=== PATIENT | female | born 1955 | race Caucasian/White ===

== ENCOUNTER → 2017-01-13 | Outpatient (CLI) | payer MEDICARE ==
[2016-10-21 16:28] VITALS: BP 137/72
[~2017-01-13] MED LIST: ASPI500T10 PO; CARI350T PO; DULO60CA6 PO; ESOM20CA PO; GABA-586 PO; HYDR-2672 PO; HYDR-2762 PO; HYDR25TA9 PO; IBUP-1007 PO; Iron PO; LEVO125T5 PO; LOSA1TAB16 PO; LOSA1TAB17 PO; MELO15TA6 PO; PROAIR HFA8.5 GM IH; RANI75TA95 PO; WARF1TAB PO; WARF5TAB PO; ZOLP10TA PO; [UNRECOGNIZED DRUG - CODE] PO
--- NOTE | 2017-01-14 05:28 | PAIN ---
DATE OF SERVICE: 01/13/2017 INITIAL CONSULTATION CHIEF COMPLAINT: Low back and right lower extremity pain, secondary complaint of neck and bilateral upper extremity and shoulder pain, right hip pain. HISTORY OF PRESENT ILLNESS: This is a 61-year-old female who presents with history of pain in the base of the neck, bilateral shoulder and upper extremities, more on the left than the right, and in the low back, right more than the left, and in the right posterior hip with pain radiating into the groin as well as into the posterior thigh, posterior knee and calf on the right side and on the left side in the upper back, neck and shoulder as well as some pain radiating to left arm greater than the right with some tingling and numbness in the left forearm and hand as well. The patient reports this has been going on for 20 plus years, gradually increasing. The patient reports it is not a result of any specific injury or accident that she is aware of. She has had multiple accidents over the years and falls. She had bilateral hip replacements, first of the left hip in 04/2016 and the right hip then in 09/2016. The patient reports her left hip did very well, right hip still has some residual pain remaining and also some low back pain. The patient reports that she had MRI scans performed at [facility]; however, when we contacted them, the only records they had on her were about 2 years old and they were unable to forward those at the time of this dictation. The patient reports the pain in the base of the neck as well as the low back and right leg and right hip as constant, sharp, stabbing, throbbing with numbness and tingling, radiating pain into the left upper extremity and right lower extremity. The patient reports it wakes her from sleep at least several times a night. It does not affect her bowel or bladder control, but does affect her ability to walk. She is using a cane as she does have one with her today, she is using with her right hand. Disability rating from 0 to 10, 10 being the worst, the patient rates it as a 6 with family and home responsibilities, 8 with self-care and life support activities. She reports that she is on disability currently secondary to health reasons. The patient has had physical therapy in the past as well as trigger point injections and epidural injections, she reports all of these have helped her in the past. Also, what helped her most is oxycodone and Soma, she is taking Soma currently. She does have a history of abuse of oxycodone recently and her primary physician requests recommendation of nonopioid options. PAST MEDICAL HISTORY: Significant for hearing loss, eyeglasses, hypothyroidism, cigarette smoking 1 pack a day for about 40 years, hypertension, arthritis. PAST SURGICAL HISTORY: Previous surgeries include left hip replacement in 04/2016, right hip replacement in 09/2016, breast lumpectomy in , hysterectomy in 1992. CURRENT MEDICATIONS: Include losartan, Soma, oxycodone, Nexium, Ambien, Cymbalta, gabapentin, and levothyroxine. ALLERGIES: THE PATIENT IS ALLERGIC TO SULFA DRUGS. FAMILY HISTORY: Significant for osteoarthritis and atrial fibrillation. SOCIAL HISTORY: The patient does not drink, but does smoke one pack a day on average cigarettes about 40 years. Does not use any illegal or illicit drugs by her report. She is single, lives locally in [place], [place]. REVIEW OF SYSTEMS: The patient's review of systems is positive for those items mentioned in the history of present illness. All systems reviewed and otherwise negative. It is complete, full and well documented on the patient's chart. PHYSICAL EXAMINATION: GENERAL: Blood pressure 146/78, pulse 79, respirations 18, temperature 98.0 degrees Fahrenheit, height is 5 feet, weight is 153 pounds. GENERAL: The patient is awake, alert, oriented, appropriate, very pleasant demeanor. HEENT: Shows normocephalic and atraumatic. Extraocular movements are intact and symmetrical. Oral cavity shows mucous membranes are moist and pink. Dentition is intact. NECK: Shows anterior throat supple without palpable lymphadenopathy noted. Swallow reflex is symmetrical. CHEST: Shows normal with inspection. Breath sounds are clear to auscultation bilaterally. HEART: Shows S1 and S2 clear. No murmurs are auscultated. ABDOMEN: Obese, soft, nontender, nondistended. No palpable organomegaly. No new rebound or guarding demonstrated. BACK: Shows spine grossly in the midline. No previous bruises, lesions, rashes, or surgical scars are noted. Normal-appearing cervical lordotic curvature, slight increase in thoracic kyphotic curvature and normal lumbar lordotic curvature. With palpation, the cervical paraspinous muscle shows some kpjb-qc-xgiccufd tenderness in the inferior aspect of the cervical paraspinous muscles as well as superior medial and lateral trapezius bilaterally, but is without trigger points, radiation, pain or asymmetry. The patient shows full rotational motion of the cervical spine with laterally greater than 45 degrees, close to 90 degrees right and left lateral with full extension, full forward flexion, chin to chest without pain reported. Low back shows normal on inspection with symmetrical paraspinous musculature. With palpation, paraspinous muscles are moderately firm and tender, but with normal muscle girth, and to a moderate extent, tender in the middle and lower distribution of the paraspinous muscles, slightly more on the right than the left, but present bilaterally with tenderness. No tenderness over the sacrum or sacroiliac regions. The patient has full rotational motion of the lumbar spine, both laterally as well as extension and flexion without significant difficulty or pain reported. EXTREMITIES: Show upper extremity deep tendon reflexes 2+ in the biceps and triceps tendons. Lower extremities showed 1+ in the patellar and tendo calcaneus tendons, are equal. Motor exam shows clinical product specialist strength at 5/5 at his biceps and triceps flexion. Lower extremities show approximately 4 on a scale of 5 but symmetrical with dorsiflexion, extension, quadriceps and hamstring flexion. The patient does have well-healed surgical scarring over the hips noted with peripheral pulses that are 2+ radial distribution, 1+ posterior tibial and dorsalis pedis pulses. No peripheral edema is noted. No clubbing or cyanosis of any of the extremities. The patient's straight leg raise noted to be negative for reproduction of radicular symptoms bilaterally. Gaenslen's maneuvers are negative bilaterally. Jules's maneuver is mildly positive on the right with external rotation of the right hip, but negative on the left. The patient is able to stand, stand on her toes, but loses balance quickly putting all of her weight on her right leg and is using a cane to ambulate, has a shuffling gait favoring the right lower extremity with ambulation. IMPRESSION: 1. This is a 61-year-old female with long history of multiple pain complaints, now with pain in the base of the neck, bilateral upper extremities with some radicular qualities also, low back and right lower extremity with some radicular qualities as well. 2. Status post bilateral hip replacement in 04/2016 and 09/2016 with left and right hips respectively. 3. History of arthritis. 4. Hypertension. 5. History of opioid abuse. PLAN AND RECOMMENDATIONS: Recommended increasing the patient's gabapentin to 400 mg 3 times daily with eventual goal of 600 mg 3 times daily if still obtaining some good analgesic and therapeutics from this. Also, we will recommend reevaluating the patient's cervical spine as well as lumbar spine with MRI, as she does have radicular symptoms in both of the upper extremities, left greater than right, and the right lower extremity, which may be attributing to some of the pain and it may all be from post-surgical consideration from her hip surgery. The patient did ask if she could have hydrocodone. I discussed this with her and we will not prescribe this for her as she has had some abuse history and we discussed more pertinent treatment of actually solving the pain issue instead of just covering up with narcotics. The patient was somewhat disappointed in this, then asked for Soma refill, again denied this as this can be combined with hydrocodone in an abuse situation as well. I discussed this with the patient and she assured me this was not the case, and nonetheless, we will not prescribe this for her either. The patient will follow up once the MRI scans are obtained of the cervical spine and lumbar spine. SENA CULVER MD DR: DONNA/renetta JOB#: [id number] / [id number] NATALIE Singleton MD
== END | disposition home or self-care (01) ==
LOC: PNCL 09:21
PROVIDERS: ATTEND Anesthesiology
DX: M79.604 Pain in right leg (principal); M54.2 Cervicalgia; M25.512 Pain in left shoulder; M25.511 Pain in right shoulder; M25.551 Pain in right hip
CPT/HCPCS: G0463

== ENCOUNTER → 2017-04-03 | Outpatient (CLI) | payer BC ==
[2016-10-21 16:28] VITALS: BP 137/72
[~2017-04-03] MED LIST changes: +WARF-78 PO; -WARF1TAB PO; +WARF1TAB74 PO; -WARF5TAB PO
--- NOTE | 2017-04-03 13:05 | RAD ---
PROCEDURE MR of the left shoulder HISTORY Left shoulder pain for 2 or 3 weeks. TECHNIQUE Routine multiplanar sequences are obtained. COMPARISON None FINDINGS Acromioclavicular joint is mildly degenerative. There is no significant undersurface osteophytes or mass-effect. Thickening of the supraspinatus and infra spinatus tendons with heterogeneous signal compatible with tendinosis. Diffuse partial tearing the undersurface, fairly deep at supraspinatus tendon, about 80 percent. There is also diffuse bursal surface irregularity. Partial tearing of the subscapularis tendon. Mild muscle atrophy. Trace fluid in the subdeltoid bursa. Small glenohumeral joint effusion with synovitis. Severe primary osteoarthritis and chondromalacia at the glenohumeral joint. Degenerative tear of the superior labrum. There also appears to be an inferior labral tear. Partial tearing of the biceps tendon with slight medial subluxation, perched over the lesser tuberosity. Subchondral bone irregularity and flattening at the posteromedial humeral head, most likely a impaction fracture, with subjacent marrow contusion. Mild marrow edema at the glenoid is likely degenerative. IMPRESSION 1. Moderate to severe rotator cuff tendinosis with diffuse partial tearing. 2. Superior labral tear. Likely inferior labral tear. 3. Primary osteoarthritis. 4. Partial biceps tendon tear with medial subluxation. 5. Subchondral irregularity at the posteromedial humeral head presumably due to impaction fracture. Electronically signed by: Amari Arnold MD (April 03, 2017 13:03:38)
== END | disposition home or self-care (01) ==
LOC: MRI 11:30
PROVIDERS: ATTEND Orthopaedic Surgery
DX: M19.012 Primary osteoarthritis, left shoulder (principal)
CPT/HCPCS: 73221

== ENCOUNTER → 2017-11-28 | Outpatient (CLI) | payer BC ==
[2017-11-28 14:48] LABS: ADD MAN DIFF? NO
[2017-11-28 14:51] LABS: BASO # 0.1 x10^3/uL (0.0-0.2); BASO % 1 % (0-3); EOS # 0.2 x10^3/uL (0.0-0.7); EOS % 3 % (0-3); HEMATOCRIT 41.5 % (36.0-47.0); HEMOGLOBIN 13.8 g/dL (12.0-15.5); LYMPH # 2.4 x10^3/uL (1.0-4.8); LYMPH % 30 % (24-48); MEAN CORPUSCULAR HEMOGLOBIN 31 pg (25-35); MEAN CORPUSCULAR HGB CONC 33 g/dL (31-37); MEAN CORPUSCULAR VOLUME 93 fL (79-100); MONO # 0.7 x10^3/uL (0.0-1.1); MONO % 9 % (0-9); NEUT # 4.4 x10^3uL (1.8-7.7); NEUT % 56 % (31-73); PLATELET COUNT 517 x10^3/uL (140-400); RED BLOOD COUNT 4.45 x10^6/uL (3.50-5.40); RED CELL DISTRIBUTION WIDTH 14.3 % (11.5-14.5); WHITE BLOOD COUNT 7.8 x10^3/uL (4.0-11.0)
[2017-11-28 15:01] LABS: BILIRUBIN,URINE NEGATIVE (NEG); CLARITY,URINE CLEAR; COLOR,URINE YELLOW; GLUCOSE,URINE NEGATIVE (NEG); NITRITE,URINE NEGATIVE (NEG); PROTEIN,URINE NEGATIVE (NEG-TRACE); UROBILINOGEN,URINE 0.2 mg/dL (0.2 mg/dL)
[2017-11-28 15:08] LABS: PARTIAL THROMBOPLASTIN TIME 30 SEC (24-38); PROTHROMBIN TIME PATIENT 12.5 SEC (11.7-14.0)
[2017-11-28 15:09] LABS: ALBUMIN 4.3 g/dL (3.4-5.0); ANION GAP 10 (6-14); BLOOD UREA NITROGEN 10 mg/dL (7-20); CALCIUM 9.7 mg/dL (8.5-10.1); CARBON DIOXIDE 28 mmol/L (21-32); CHLORIDE 97 mmol/L (98-107); CREATININE 0.6 mg/dL (0.6-1.0); GFR 101.6; GLUCOSE 94 mg/dL (70-99); POTASSIUM 3.5 mmol/L (3.5-5.1); SODIUM 135 mmol/L (136-145)
[2017-11-28 15:25] LABS: BACTERIA,URINE MODERATE /HPF (0-FEW); RBC,URINE OCC /HPF (0-2); SQUAMOUS EPITHELIAL CELL,UR MANY /LPF; WBC,URINE OCC /HPF (0-4)
[2017-11-28 15:56] LABS: SEDIMENTATION RATE 30 (0-25)
[2017-11-29 04:19] LABS: MRSA BY PCR Negative (Negative)
== END | disposition home or self-care (01) ==
LOC: SURGPAT 13:55
DX: M19.012 Primary osteoarthritis, left shoulder (principal); S43.432D Superior glenoid labrum lesion of left shoulder, subsequent encounter
CPT/HCPCS: 36415; 71046; 80048; 81001; 82040; 85025; 85610; 85651; 85730; 87086; 87641; 93005

== ENCOUNTER 2018-03-01 15:35 | Inpatient (IN) | payer BC ==
[2018-03-01] MEDS: IPRATRPIUM/ALBUTEROL 0.5/2.5MG 3 ML NEBU. NEB ×2 (15:57→19:51)
[2018-03-01 16:12] LABS: ADD MAN DIFF? NO
[2018-03-01 16:13] LABS: BASO # 0.1 x10^3/uL (0.0-0.2); BASO % 1 % (0-3); EOS # 0.1 x10^3/uL (0.0-0.7); EOS % 1 % (0-3); HEMOGLOBIN 14.9 g/dL (12.0-15.5); LYMPH # 2.1 x10^3/uL (1.0-4.8); LYMPH % 21 % (24-48); MEAN CORPUSCULAR HEMOGLOBIN 32 pg (25-35); MEAN CORPUSCULAR HGB CONC 34 g/dL (31-37); MEAN CORPUSCULAR VOLUME 94 fL (79-100); MONO # 0.6 x10^3/uL (0.0-1.1); MONO % 6 % (0-9); NEUT % 71 % (31-73); PLATELET COUNT 626 x10^3/uL (140-400); RED BLOOD COUNT 4.71 x10^6/uL (3.50-5.40); RED CELL DISTRIBUTION WIDTH 14.6 % (11.5-14.5); WHITE BLOOD COUNT 9.9 x10^3/uL (4.0-11.0)
[2018-03-01 16:53] LABS: ANION GAP 11 (6-14); BLOOD UREA NITROGEN 9 mg/dL (7-20); BUN/CREATININE RATIO 11 (6-20); CALCIUM 10.6 mg/dL (8.5-10.1); CARBON DIOXIDE 25 mmol/L (21-32); CHLORIDE 99 mmol/L (98-107); CREATININE 0.8 mg/dL (0.6-1.0); GFR 72.9; GLUCOSE 133 mg/dL (70-99); POTASSIUM 4.2 mmol/L (3.5-5.1); SODIUM 135 mmol/L (136-145)
[2018-03-01 16:58] LABS: ALBUMIN 4.4 g/dL (3.4-5.0); ALBUMIN/GLOBULIN RATIO 1.3 (1.0-1.7); ALK PHOS 114 U/L (46-116); ALT (SGPT) 18 U/L (14-59); AST (SGOT) 12 U/L (15-37); TOTAL BILIRUBIN 0.4 mg/dL (0.2-1.0); TOTAL PROTEIN 7.9 g/dL (6.4-8.2)
[2018-03-01] MEDS ORDERED: CONTRAST GIVEN MC (17:00)
[2018-03-01 17:04] LABS: NT-PRO BNP 20 pg/mL (0-124)
[2018-03-01 17:07] LABS: TROPONINI < 0.017 ng/mL (0.000-0.055)
[2018-03-01] MEDS: IOHEXOL 300 MG/ML 100ML VIAL. IV (17:15)
[2018-03-01] MEDS ORDERED: NITROGLYCERIN SUBLINGUAL 0.4 MG BOTTLE OF 25. SL (18:00)
[2018-03-01] MEDS ORDERED: ONDANSETRON PF 4 MG/2 ML VIAL. IV (18:00)
[2018-03-01] MEDS: predniSONE 10 MG TABLET PO (18:19)
[2018-03-01] MEDS: methylPREDNISolone SOD SUCC PF 40 MG/ML VIAL. IV (21:34)
[2018-03-01] MEDS: guaiFENesin/CODEINE 100mg/10mg 5 ML LIQUID PO (21:34)
[2018-03-01] MEDS: ZOLPIDEM 5 MG TABLET. PO (21:34)
[2018-03-01] MEDS: ATORVASTATIN CALCIUM 10 MG TABLET. PO (21:35)
[2018-03-01] MEDS: DULoxetine HCL 30 MG CAPSULE.DR PO (21:35)
[2018-03-01] MEDS: GABAPENTIN 300 MG CAPSULE. PO (21:37)
[2018-03-01 22:22] LABS: TROPONINI < 0.017 ng/mL (0.000-0.055)
[2018-03-01] MEDS: ALBUTEROL SULFATE 2.5 MG/3 ML NEBU. NEB (23:05)
[2018-03-02] MEDS: guaiFENesin DM 600/30MG 1 TAB TAB.ER.12H PO ×3 (01:52→09:14)
[2018-03-02 05:11] LABS: BASO % 0 % (0-3); EOS % 0 % (0-3); HEMATOCRIT 38.7 % (36.0-47.0); HEMOGLOBIN 13.2 g/dL (12.0-15.5); LYMPH # 0.6 x10^3/uL (1.0-4.8); LYMPH % 6 % (24-48); MEAN CORPUSCULAR HEMOGLOBIN 32 pg (25-35); MEAN CORPUSCULAR HGB CONC 34 g/dL (31-37); MEAN CORPUSCULAR VOLUME 94 fL (79-100); MONO # 0.1 x10^3/uL (0.0-1.1); MONO % 1 % (0-9); NEUT # 9.3 x10^3uL (1.8-7.7); NEUT % 93 % (31-73); PLATELET COUNT 537 x10^3/uL (140-400); RED BLOOD COUNT 4.14 x10^6/uL (3.50-5.40); RED CELL DISTRIBUTION WIDTH 13.9 % (11.5-14.5)
[2018-03-02 05:22] LABS: ADD MAN DIFF? YES
[2018-03-02 05:24] LABS: ANION GAP 14 (6-14); BLOOD UREA NITROGEN 18 mg/dL (7-20); CARBON DIOXIDE 21 mmol/L (21-32); CHLORIDE 97 mmol/L (98-107); GFR 56.4; GLUCOSE 255 mg/dL (70-99); POTASSIUM 3.4 mmol/L (3.5-5.1); SODIUM 132 mmol/L (136-145)
[2018-03-02] MEDS: LEVOTHYROXINE 100 MCG TABLET PO (06:05)
[2018-03-02] MEDS: PANTOPRAZOLE 40 MG TABLET.DR. PO (06:05)
[2018-03-02] MEDS: methylPREDNISolone SOD SUCC PF 40 MG/ML VIAL. IV (06:06)
[2018-03-02 06:48] LABS: TROPONINI < 0.017 ng/mL (0.000-0.055)
[2018-03-02] MEDS: IPRATRPIUM/ALBUTEROL 0.5/2.5MG 3 ML NEBU. NEB ×3 (07:03→10:52)
[2018-03-02] MEDS: ALBUTEROL SULFATE 2.5 MG/3 ML NEBU. NEB (07:04)
[2018-03-02] MEDS: BUDESONIDE 0.5 MG/2 ML NEBU. NEB (07:05)
[2018-03-02] MEDS ORDERED: NICOTINE 21MG PATCH. TD (07:45)
[2018-03-02 07:53] LABS: % LYMPHS 1 % (24-48); % MONOS 1 % (0-10); % SEGS 98 % (35-66)
[2018-03-02 07:54] LABS: PLT ESTIMATE INCREASED (ADEQUATE)
[2018-03-02] MEDS: GABAPENTIN 300 MG CAPSULE. PO (09:03)
[2018-03-02] MEDS: hydroCHLOROthiazide 25 MG TABLET PO (09:04)
[2018-03-02] MEDS: MELOXICAM 7.5 MG TABLET PO ×2 (09:05→09:14)
[2018-03-02] MEDS: ACETAMINOPHEN 325 MG TABLET. PO (09:05)
[2018-03-02] MEDS: LOSARTAN POTASSIUM 50 MG TABLET. PO (09:05)
[2018-03-02] MEDS: CYANOCOBALAMIN (VITAMIN B-12) 1,000 MCG TABLET. PO (09:06)
[2018-03-02] MEDS: DULoxetine HCL 30 MG CAPSULE.DR PO (09:06)
[2018-03-02] MEDS: POTASSIUM CHLORIDE 20 MEQ TABLET.ER. PO (09:06)
== END 2018-03-02 11:45 | disposition home health service (06) | DRG 189 ==
LOC: ER 15:35 → 5 SOUTH 17:56
DX: J96.00 Acute respiratory failure, unspecified whether with hypoxia or hypercapnia (principal); J44.1 Chronic obstructive pulmonary disease with (acute) exacerbation; J98.11 Atelectasis; E87.6 Hypokalemia; I10 Essential (primary) hypertension; E03.9 Hypothyroidism, unspecified; E78.5 Hyperlipidemia, unspecified; Z79.899 Other long term (current) drug therapy; Z91.14 Patient's other noncompliance with medication regimen; F17.210 Nicotine dependence, cigarettes, uncomplicated; Z86.718 Personal history of other venous thrombosis and embolism; Z88.1 Allergy status to other antibiotic agents
CPT/HCPCS: 36415; 71045; 71275; 80048; 80053; 83880; 84484; 85007; 85025; 93005; 94640; 94760; 97161-GP; J1956; J2920; J7512; J7613; J7620; J7626; Q9967

== ENCOUNTER 2018-06-07 19:36 | Emergency (ER) | payer BC, OTHER ==
[2018-06-07] MEDS: MORPHINE SULFATE 10 MG/ML VIAL. IV (21:03)
[2018-06-07 21:05] LABS: ADD MAN DIFF? NO
[2018-06-07 21:07] LABS: BASO # 0.1 x10^3/uL (0.0-0.2); BASO % 1 % (0-3); EOS # 0.2 x10^3/uL (0.0-0.7); EOS % 3 % (0-3); HEMATOCRIT 37.2 % (36.0-47.0); HEMOGLOBIN 12.8 g/dL (12.0-15.5); LYMPH # 2.7 x10^3/uL (1.0-4.8); LYMPH % 34 % (24-48); MEAN CORPUSCULAR HEMOGLOBIN 32 pg (25-35); MEAN CORPUSCULAR HGB CONC 35 g/dL (31-37); MEAN CORPUSCULAR VOLUME 93 fL (79-100); MONO # 0.8 x10^3/uL (0.0-1.1); MONO % 10 % (0-9); NEUT # 4.2 x10^3uL (1.8-7.7); NEUT % 52 % (31-73); PLATELET COUNT 502 x10^3/uL (140-400); RED BLOOD COUNT 3.99 x10^6/uL (3.50-5.40); RED CELL DISTRIBUTION WIDTH 14.3 % (11.5-14.5); WHITE BLOOD COUNT 8.1 x10^3/uL (4.0-11.0)
[2018-06-07 21:21] LABS: ANION GAP 7 (6-14); BLOOD UREA NITROGEN 10 mg/dL (7-20); CALCIUM 9.1 mg/dL (8.5-10.1); CARBON DIOXIDE 30 mmol/L (21-32); CHLORIDE 97 mmol/L (98-107); CREATININE 0.7 mg/dL (0.6-1.0); GFR 85.1; GLUCOSE 98 mg/dL (70-99); POTASSIUM 3.5 mmol/L (3.5-5.1); SODIUM 134 mmol/L (136-145)
[2018-06-07 21:23] LABS: ALBUMIN 3.7 g/dL (3.4-5.0); ALK PHOS 83 U/L (46-116); ALT (SGPT) 17 U/L (14-59); AST (SGOT) 14 U/L (15-37); DIRECT BILIRUBIN 0.1 mg/dL (0.0-0.2); LIPASE 217 U/L (73-393); TOTAL BILIRUBIN 0.3 mg/dL (0.2-1.0); TOTAL PROTEIN 6.8 g/dL (6.4-8.2)
[2018-06-07] MEDS: IOHEXOL 300 MG/ML 100ML VIAL. IV (21:41)
[2018-06-07 22:25] LABS: BILIRUBIN,URINE NEGATIVE (NEG); CLARITY,URINE CLEAR; COLOR,URINE YELLOW; GLUCOSE,URINE NEGATIVE (NEG); NITRITE,URINE NEGATIVE (NEG); PROTEIN,URINE NEGATIVE (NEG-TRACE); UROBILINOGEN,URINE 0.2 mg/dL (0.2 mg/dL)
[2018-06-07 22:29] LABS: BACTERIA,URINE 0 /HPF (0-FEW); RBC,URINE 0 /HPF (0-2); SQUAMOUS EPITHELIAL CELL,UR OCC /LPF; WBC,URINE 0 /HPF (0-4)
[2018-06-07] MEDS: CIPROFLOXACIN HCL 250 MG TABLET. PO (23:00)
[2018-06-07] MEDS: MORPHINE SULFATE 4 MG/ML DISP.SYRIN. IV (23:00)
[2018-06-07] MEDS: metroNIDAZOLE 500 MG TABLET PO (23:00)
== END 2018-06-07 23:27 | disposition home or self-care (01) ==
LOC: ER 23:27
DX: R10.32 Left lower quadrant pain (principal); K21.9 Gastro-esophageal reflux disease without esophagitis; E78.00 Pure hypercholesterolemia, unspecified; I10 Essential (primary) hypertension; J44.9 Chronic obstructive pulmonary disease, unspecified; Z88.0 Allergy status to penicillin; Z88.2 Allergy status to sulfonamides; Z88.8 Allergy status to other drugs, medicaments and biological substances
CPT/HCPCS: 36415; 74177; 80048; 80076; 81001; 83690; 85025; 96374; 96376; 99285-25; J2270; Q9967

== ENCOUNTER → 2018-09-13 | Outpatient (CLI) | payer BC, OTHER ==
[2018-06-07 22:45] VITALS: BP 151/69
[~2018-09-13] MED LIST changes: +ALBU0.63 NEB; +ALBU2.5V5 NEB; +CIPR500T PO; +CYAN10005 PO; +GLYC10.7 IH; +GUAI120L35 PO; -HYDR-2672 PO; +HYDR-2766 PO; +HYDR-971 PO; -LOSA1TAB16 PO; -LOSA1TAB17 PO; +LOSA1TAB19 PO; +LOSA1TAB22 PO; +LOVA20TA2 PO; +MELO15TA23 PO; +METR500T PO; +OXYC-317 PO; +TIOT4MIS3 IH; -[UNRECOGNIZED DRUG - CODE] PO
--- NOTE | 2018-09-13 17:18 | KCIC ---
MR of the right knee Indication: Right knee pain for 6 months. Instability. Technique: The standard multiplanar sequences are obtained. FINDINGS: Artifact: No significant image degradation. Medial meniscus: Small and blunted. Compatible with a tear. Lateral meniscus: Intact. Anterior cruciate ligament: Intact Posterior cruciate ligament: Intact Medial collateral ligament: Intact. Lateral structures: * Iliotibial band: Intact. * Lateral collateral ligament: Intact. * Biceps femoris tendon: Intact * Popliteus tendon attachment: Intact Extensive mechanism: * Patellar tendon: Intact * Quadriceps tendon: Intact * Retinacular structures: Intact Fluid: Trace joint effusion. Trace García's cyst. Intra-articular bodies: None visualized Joint compartments * patellofemoral joint: Mild chondromalacia. * medial compartment: Moderate chondromalacia at the medial femoral condyle. * lateral compartment:Intact Bones: Mild cystic change within the proximal tibia. Mild degenerative changes at the tibiofibular joint. Soft tissue: Unremarkable Impression: 1. Medial meniscal tear. 2. Primary osteoarthritis. Electronically signed by: Amari Arnold MD (09/13/2018 5:16 PM) [facility]
== END | disposition home or self-care (01) ==
LOC: KCIC MRI 15:50
PROVIDERS: ATTEND Orthopaedic Surgery
DX: S83.241A Other tear of medial meniscus, current injury, right knee, initial encounter (principal); M17.11 Unilateral primary osteoarthritis, right knee; M94.261 Chondromalacia, right knee; X58.XXXA Exposure to other specified factors, initial encounter; Y93.89 Activity, other specified; Y92.89 Other specified places as the place of occurrence of the external cause; Y99.8 Other external cause status
CPT/HCPCS: 73721

== ENCOUNTER → 2019-01-24 | Outpatient (CLI) | payer OTHER ==
[2018-06-07 22:45] VITALS: BP 151/69
[~2019-01-24] MED LIST changes: +ALBU2.5V8 IH; -GABA-586 PO; +GABA300C18 PO; +HYDR-2145 PO; -HYDR-2762 PO; +HYDR-2765 PO; -HYDR-2766 PO; +HYDR-2769 PO; +HYDR-3164 PO; -HYDR-971 PO; -HYDR25TA9 PO; -PROAIR HFA8.5 GM IH; +RANI-348 PO; -RANI75TA95 PO
--- NOTE | 2019-01-24 16:38 | KCIC ---
MR of the right shoulder HISTORY: Right shoulder pain. Chronic and getting worse. TECHNIQUE: Routine multiplanar sequences are obtained. FINDINGS: Mild motion degradation. Acromioclavicular joint is intact. Full-thickness rotator cuff tear of the supraspinatus and infraspinatus tendon with 3 cm retraction. Severe fatty infiltration of the infraspinatus, mild at the supraspinatus, with volume loss. Subscapularis partial tear. Small subdeltoid bursal effusion. Small glenohumeral joint effusion. Severe cartilage loss at the inferior glenoid. Degenerative tear of the posterosuperior labrum. Milder degeneration of the inferior labrum. No aggressive bone destruction or acute fracture. IMPRESSION: 1. Large retracted rotator cuff tear with atrophy. 2. Primary osteoarthritis. 3. Posterosuperior labral tear. 4. Small effusion. Electronically signed by: Amari Arnold MD (01/24/2019 4:35 PM) [facility]
== END | disposition home or self-care (01) ==
LOC: KCIC MRI 14:54
PROVIDERS: ATTEND Orthopaedic Surgery
DX: S43.491A Other sprain of right shoulder joint, initial encounter (principal); S46.011A Strain of muscle(s) and tendon(s) of the rotator cuff of right shoulder, initial encounter; M62.511 Muscle wasting and atrophy, not elsewhere classified, right shoulder; M19.011 Primary osteoarthritis, right shoulder; M25.411 Effusion, right shoulder; X58.XXXA Exposure to other specified factors, initial encounter; Y93.89 Activity, other specified; Y92.89 Other specified places as the place of occurrence of the external cause; Y99.8 Other external cause status
CPT/HCPCS: 73221

== ENCOUNTER → 2019-02-22 | Outpatient (CLI) | payer OTHER ==
[2018-06-07 22:45] VITALS: BP 151/69
--- NOTE | 2019-02-22 14:26 | EKG ---
[facility] [address] [place] [address] Test Date: 2019-02-22 Test Time: 14:11:55 Pat Name: GIOVANNA GARCIA Department: Room: Gender: F [employer] Manager: SHIV : 1955 Requested By: CONSUELO MORRISON Order Number: [id number] Reading MD: Armando Frausto MD Measurements Intervals [place] Rate: 83 P: 53 SD: 122 QRS: -12 QRSD: 132 T: 138 QT: 394 QTc: 469 Interpretive Statements SINUS RHYTHM VENTRICULAR PREMATURE COMPLEX(ES) LBBB Electronically Signed On 02-26-2019 14:59:23 CDT by Armando Frausto MD
--- NOTE | 2019-02-22 15:10 | RAD ---
AP and Lateral Views of the Chest 02/22/2019 2:27 PM Indication: PRE OP. HX OF COPD Comparison: CT of the chest March 01, 2018 Findings: Elevation of left hemidiaphragm with left middle lobe atelectasis is similar to prior CT scan. No pneumothorax or pleural effusion is identified. Small nodular opacities can be seen in the right lung. These may relate to the nodule seen on prior CT scan. Recommend a follow-up CT chest for evaluation. Heart size is normal. No new focal consolidative infiltrate is seen. Left shoulder arthroplasty noted. No acute osseous changes are seen. IMPRESSION: 1. Persistent elevation of left hemidiaphragm with middle lobe atelectasis. 2. Small right-sided nodules, possibly relating to the previously seen nodules. Follow-up CT recommended given possible increase in prominence. Electronically signed by: Kip Calix MD (02/22/2019 3:08 PM) [facility]
--- NOTE | 2019-02-28 12:22 | NUR ---
FAXED MRSA,CXR,EKG'S PRELIMINARY REPORTS TO ,PCP OFFICE FOR REVIEW 02/25/2019 AT 1304 AND RECEIVED TRANSMITTAL CONFIRMATION. PATIENT'S LABS,UA WAS TO BE DONE AT PCP'S OFFICE AT HER VISIT WHICH WAS 02/26/19 AND CALLED OFFICE 02/28/2019 AT 0925 AND TALKED TO DANDRE NOVOA AND REQUESTED TEST REPORTS AND F/U MEDICAL CLEARANCE NOTES AND SHE SAID PCP IS OFF TODAY BUT WILL BE IN THE OFFICE TOMORROW AND SHE WILL FAX TEST REPORTS WHEN AVAILABLE.
--- NOTE | 2019-04-23 19:10 | NUR ---
PATIENT'S 03/05/2019 SURGERY CANCELLED BY D/T ABNORMAL EKG AND NEEDS ECHOCARDIOGRAM PER PCP.
== END | disposition home or self-care (01) ==
LOC: SURGPAT 13:35
PROVIDERS: ATTEND Orthopaedic Surgery
DX: Z01.818 Encounter for other preprocedural examination (principal); I44.7 Left bundle-branch block, unspecified; I49.3 Ventricular premature depolarization; J98.11 Atelectasis; R91.8 Other nonspecific abnormal finding of lung field; J44.9 Chronic obstructive pulmonary disease, unspecified; Z88.8 Allergy status to other drugs, medicaments and biological substances
CPT/HCPCS: 36415; 71046; 87641; 93005

== ENCOUNTER → 2019-03-13 | Outpatient (CLI) | payer OTHER ==
[2018-06-07 22:45] VITALS: BP 151/69
--- NOTE | 2019-03-13 18:16 | RAD ---
Examination: CT CHEST WO CONTRAST History: F/U lung NODULE PREV SENT Comparison/Correlation: 03/01/2018 CT of the chest Findings: Axial images of chest were obtained without contrast. Sagittal and coronal reformatted images were provided. Total left shoulder joint arthroplasty noted. Tracheobronchial tree is unremarkable. Right middle lobe pulmonary nodule which measures 0.4 cm diameter is present and noncalcified. It is seen on axial image 36 of series 2. Lingular atelectasis at the medial basilar aspect anteriorly noted and similar upon correlation with previous exam. Left lateral basilar noncalcified nodule measuring 0.3 cm diameter is present on axial image 34 of series 2. Few punctate right anterior apical pulmonary nodules. Elevation of the left hemidiaphragm is noted. No acute bony process. Severe degenerative disc space narrowing at T12-L1 noted. Partially visualized upper abdomen is unremarkable. Impression: Multiple small pulmonary nodules are present but are stable measuring less than 0.5 cm diameter. No suspicious pulmonary nodule or suspicious infiltrate. No further follow-up required. PQRS Compliance Statement: One or more of the following individualized dose reduction techniques were utilized for this examination: 1. Automated exposure control 2. Adjustment of the mA and/or kV according to patient size 3. Use of iterative reconstruction technique Electronically signed by: Wilfrido Henderson MD (03/13/2019 6:13 PM) [facility]
== END | disposition home or self-care (01) ==
LOC: CT 14:23
PROVIDERS: ATTEND Family Medicine
DX: J98.11 Atelectasis (principal); R91.8 Other nonspecific abnormal finding of lung field; M48.05 Spinal stenosis, thoracolumbar region; Z96.612 Presence of left artificial shoulder joint; Z87.891 Personal history of nicotine dependence
CPT/HCPCS: 71250

== ENCOUNTER → 2019-06-04 | Outpatient (CLI) | payer MEDICAID, OTHER ==
[2018-06-07 22:45] VITALS: BP 151/69
--- NOTE | 2019-06-04 13:43 | CARD ---
MR#: [id number] Date of Study: 06/04/2019 Ordering Physician: NATALIE BOTELLO, Referring Physician: NATALIE BOTELLO Tech: Ivone Luna RDCS APPROVED REPORT EXAM: Two-dimensional and M-mode echocardiogram with Doppler and color Doppler. Other Information Quality : Good INDICATION Left Ventricular Hypertrophy 2D DIMENSIONS RVDd2.3 (2.9-3.5cm)Left Atrium(2D)3.6 (1.6-4.0cm) IVSd0.9 (0.7-1.1cm)Aortic Root(2D)2.8 (2.0-3.7cm) LVDd4.9 (3.9-5.9cm)LVOT Diameter1.9 (1.8-2.4cm) PWd0.9 (0.7-1.1cm)LVDs3.8 (2.5-4.0cm) FS (%) 23.2 %SV52.4 ml LVEF(%)56.4 (>50%) Aortic Valve AoV Peak Bogdan.133.2cm/sAoV VTI26.0cm AO Peak GR.7.1mmHgLVOT Peak Bogdan.116.1cm/s LVOT VTI 19.29cmAO Mean GR.4mmHg DAJUAN (VMAX)2.16gi7AMY (VTI)2.13cm2 Mitral Valve MV E Ikjkbpab39.6cm/sMV DECEL NLJF439wl MV A Lbnqkaqx26.7cm/sMV QKU34qa E/A Ratio0.9MVA (PHT)3.52cm2 TDI E/Lateral E'11.6E/Medial E'13.7 Tricuspid Valve TR P. Lewnmova705ph/sRAP NNAUOXVL1gsRw TR Peak Gr.90sdKyNMED31xfXu Pulmonary Vein S1 Avebvpgf77.3cm/sD2 Spprgexw29.7cm/s LEFT VENTRICLE The left ventricle is normal size. There is normal left ventricular wall thickness. The left ventricu lar systolic function is normal. The Ejection Fraction is 60%. Septal motion consistent with conducti on abnormality. Transmitral Doppler flow pattern is Grade I-abnormal relaxation pattern. RIGHT VENTRICLE The right ventricle is normal size. The right ventricular systolic function is normal. ATRIA The left atrium size is normal. The right atrium size is normal. The interatrial septum is intact wit h no evidence for an atrial septal defect or patent foramen ovale as noted on 2-D or Doppler imaging. AORTIC VALVE The aortic valve is calcified but opens well. Doppler and Color Flow revealed no significant aortic r egurgitation. There is no significant aortic valvular stenosis. MITRAL VALVE The mitral valve is normal in structure and function. There is no evidence of mitral valve prolapse. There is no mitral valve stenosis. Doppler and Color Flow revealed no mitral valve regurgitation note d. TRICUSPID VALVE The tricuspid valve is normal in structure and function. Doppler and Color Flow revealed trace tricus pid regurgitation. The PA pressure was estimated at 24 mmHg. There is no tricuspid valve stenosis. PULMONIC VALVE The pulmonic valve is not well visualized. Doppler and Color Flow revealed no pulmonic valvular regur gitation. There is no pulmonic valvular stenosis. GREAT VESSELS The aortic root is normal in size. The ascending aorta is normal in size. The IVC is normal in size a nd collapses >50% with inspiration. PERICARDIAL EFFUSION There is no evidence of significant pericardial effusion. Critical Notification Critical Value: No <Conclusion> The left ventricular systolic function is normal. The Ejection Fraction is 60%. Transmitral Doppler flow pattern is Grade I-abnormal relaxation pattern. Trace tricuspid regurgitation. The PA pressure was estimated at 24 mmHg. There is no evidence of significant pericardial effusion. Signed by : Gregory Guillaume, Electronically Approved : 06/04/2019 13:43:25
== END | disposition home or self-care (01) ==
LOC: ECHO 12:45
PROVIDERS: ATTEND Family Medicine
DX: I35.8 Other nonrheumatic aortic valve disorders (principal)
CPT/HCPCS: 93306

== ENCOUNTER → 2019-08-06 | Outpatient (CLI) | payer OTHER ==
[2018-06-07 22:45] VITALS: BP 151/69
[~2019-08-06] MED LIST changes: +AMLO5TAB10 PO; +CYAN-25 PO; -CYAN10005 PO; +LEVO50TA5 PO
--- NOTE | 2019-08-08 15:17 | NUR ---
Pretesting results from 08/06/[address] Geller and Dr. Ann Camejo. Patient notified her Vitamin D level is low-9, she said her PCP Dr. Camejo has resigned and she is in transition to a new PCP but has not set up an appointment. Recommended she start an over the counter Vitamin D in the interim. I notified Dr. Yimi Gutierrez's MA that patient has no PCP at this time to address the low Vitamin D.
--- NOTE | 2019-08-12 10:26 | NUR ---
CALLED DANDRE SANDERSON OF 08/12/19 AT 1000 AND LEFT A MESSAGE F/U ON VIT.D BEING LOW. MARIA E CALLED BACK AT 1020 08/12/19 AND PATIENT OKAY TO GO AHEAD WITH SURGERY PER WITH LOW VIT.D.
--- NOTE | 2019-08-12 19:19 | NUR ---
CALLED PATIENT AT 0915 08/12/2019 FOR SURGERY TIME CHANGED AND LEFT A MESSAGE FOR OR AT 1300 AND TO BE HERE AT [facility] AT 1100 AND MAY HAVE WATER TILL 0900 ONLY.
== END | disposition home or self-care (01) ==
LOC: SURGPAT 12:36
PROVIDERS: ATTEND Orthopaedic Surgery
DX: Z01.818 Encounter for other preprocedural examination (principal); S83.241A Other tear of medial meniscus, current injury, right knee, initial encounter; Z88.2 Allergy status to sulfonamides; Z88.8 Allergy status to other drugs, medicaments and biological substances
CPT/HCPCS: 36415; 87641

== ENCOUNTER 2019-08-13 07:28 | Inpatient (IN) | payer MEDICAID, OTHER ==
[~2019-08-13] VITALS: Ht 149.9 cm; Wt 61.4 kg
[~2019-08-13 07:28] MED LIST changes: +ACETAMINOPHEN 500 MG TABLET PO PRN; +HYDROmorphone 2 MG/ML VIAL IV PRN; +IV RINGERS,LACTATED 1000ML 1,000 ML IV SCH; +LIDOCAINE 1% PF 2 ML VIAL. ID PRN; +MELOXICAM 7.5 MG TABLET PO PRN; +MORPHINE SULFATE 2 MG/ML VIAL. IV PRN; +ONDANSETRON PF 4 MG/2 ML VIAL. IV PRN; +PROCHLORPERAZINE 10 MG/2 ML VIAL. IV PRN; +TRANEXAMIC ACID 1,000 MG in IV NS 50ML -- 1ST BAG INJ ONE; +fentaNYL PF VIAL 100 MCG/2 ML VIAL IV PRN
[2019-08-13] MEDS ORDERED: TRANEXAMIC ACID 1,000 MG in IV NS 50ML -- 2ND BAG INJ ONE (08:00)
[2019-08-13] MEDS ORDERED: PROPOFOL 20 ML IV ONE (11:35)
[2019-08-13] MEDS ORDERED: DEXAMETHASONE SOD PHOS 4 MG/ML VIAL ONE (11:35)
[2019-08-13] MEDS ORDERED: ROCURONIUM 50 MG/5 ML VIAL. ONE (11:35)
[2019-08-13] MEDS ORDERED: LIDOCAINE 2% PF 5 ML VIAL. ONE (11:35)
[2019-08-13] MEDS ORDERED: ONDANSETRON PF 4 MG/2 ML VIAL. ONE (11:35)
[2019-08-13] MEDS ORDERED: fentaNYL PF VIAL 100 MCG/2 ML VIAL ONE ×2 (11:36→11:54)
[2019-08-13] MEDS: fentaNYL PF VIAL 100 MCG/2 ML VIAL IV PRN ×3 (11:57→17:19)
[2019-08-13] MEDS ORDERED: MIDAZOLAM HCL/PF 2 MG/2 ML VIAL. ONE (12:04)
[2019-08-13] MEDS ORDERED: ROPIVacaine 0.5% PF 20 ML VIAL. ONE (12:04)
[2019-08-13] MEDS ORDERED: SEVOFLURANE > 120 MINUTES. IH ONE (14:45)
[2019-08-13] MEDS ORDERED: ePHEDrine PF IN SALINE 50 MG/10 ML SYRINGE. IV ONE (14:45)
[2019-08-13] MEDS ORDERED: PHENYLEPHRINE in 0.9% NACL PF 1 MG/10 ML SYRINGE. IV ONE (14:45)
[2019-08-13] MEDS ORDERED: PHENYLEPHRINE 10 MG/ML VIAL. ONE (14:50)
--- NOTE | 2019-08-13 15:04 | HP ---
ADMIT DATE: 08/13/2019 PREOPERATIVE HISTORY AND PHYSICAL CHIEF COMPLAINT: Right shoulder pain. HISTORY OF PRESENT ILLNESS: The patient has had longstanding right shoulder pain and has gotten no relief from ongoing nonoperative management and specifically no relief from her last right shoulder injection. She continued to have difficulty lifting away from her body and overhead, has been unresponsive to a dedicated home exercise program similar to the exercises that she had done on her operative left shoulder, previously underwent reverse arthroplasty with excellent results. PAST MEDICAL HISTORY: Hypothyroidism, hypertension, and heart problems. PAST SURGICAL HISTORY: Breast surgery in 1985, hysterectomy in 1992, left hip arthroplasty in 2015, right hip in October of 2016, left shoulder arthroplasty in November 2017. FAMILY HISTORY: Toxic shock in her mother. Heart disease, hypertension in her mother as well. Father, hypertension. She has no children. SOCIAL HISTORY: One plus pack per day smoker. Occasional marijuana use. Denies other drug use. MEDICATIONS: List is reviewed. ALLERGIES: INCLUDE SULFA AND SEROQUEL. REVIEW OF SYSTEMS: Denies any chest pain, fever, chills, shortness of breath. Continued for the right shoulder pain as above. PHYSICAL EXAMINATION: GENERAL: The patient is a pleasant, cooperative female, alert and oriented, no acute distress. HEENT: Atraumatic, normocephalic. HEART: Regular rate and rhythm. LUNGS: Clear to auscultation bilaterally. EXTREMITIES: She has pseudoparalysis of right shoulder. Excellent elevation on the left with good stability. Well-healed incision from a previous shoulder arthroplasty. Walks with minimal antalgia to her gait. IMAGING: MRI of her right shoulder shows a massive rotator cuff tear that appears irreparable and changes of some rotator cuff arthropathy. IMPRESSION: Right shoulder pain with irreparable rotator cuff tear. TREATMENT PLAN: I went over with her and reviewed the risks, benefits, postoperative course of reverse shoulder arthroplasty, which she has on the other side and is well familiar with the recovery. We talked about the possibility of infection, premature wear, loosening, instability, nerve or blood vessel damage, medical or other anesthetic complications, continued pain among others. All her questions were answered. She wishes to proceed with surgical evaluation and treatment, which will occur with [facility] admission to follow. CONSUELO MORRISON MD DR: DENG/renetta JOB#: [id number] / [id number]
[2019-08-13] MEDS ORDERED: GLYCOPYRROLATE 1 MG/5 ML VIAL. ONE (15:51)
[2019-08-13] MEDS ORDERED: NEOSTIGMINE METHYLSULFATE 5 MG/5 ML SYRINGE. ONE (15:51)
[2019-08-13] MEDS ORDERED: IV NORMAL SALINE 1000ML BAG 1,000 ML IV SCH (16:25)
[2019-08-13] MEDS ORDERED: NALOXONE 0.4 MG/ML VIAL. IV PRN (16:30)
[2019-08-13] MEDS ORDERED: ACETAMINOPHEN 325 MG TABLET. PO PRN (16:30)
[2019-08-13] MEDS ORDERED: IV DEXTROSE 5% 250 ML BAG. IV PRN (16:30)
[2019-08-13] MEDS ORDERED: oxyCODONE/APAP 5/325 1 TAB TABLET PO PRN (16:30)
[2019-08-13] MEDS ORDERED: HYDROcodone/APAP 10/325 1 TAB TABLET PO PRN (16:30)
[2019-08-13] MEDS ORDERED: CALCIUM CARBONATE 500 MG TAB.CHEW PO PRN (16:30)
[2019-08-13] MEDS ORDERED: HYDROcodone/APAP 7.5/325MG 1 TAB TABLET PO PRN (16:30)
[2019-08-13] MEDS ORDERED: traMADol 50 MG TABLET PO PRN ×2 (16:30)
[2019-08-13] MEDS ORDERED: HYDROmorphone 2 MG/ML VIAL IV PRN (16:30)
[2019-08-13] MEDS ORDERED: 0.9 % SODIUM CHLORIDE 10 ML DISP.SYRIN. IV PRN (16:30)
[2019-08-13] MEDS ORDERED: DEXTROSE 50% 25 GM / 50ML DISP.SYRIN. IV PRN (16:30)
[2019-08-13] MEDS ORDERED: PROCHLORPERAZINE 5 MG TABLET. PO PRN (16:30)
--- NOTE | 2019-08-13 17:04 | RAD ---
Two-view right shoulder dated 08/13/2019. No comparison available. Clinical data indication: Postop shoulder arthroplasty. FINDINGS: 2 views of the right shoulder show interval total shoulder arthroplasty. Humeral and glenoid components are intact. No periprosthetic fracture or malalignment. There is soft tissue swelling and soft tissue gas. Mild hypertrophic change of the AC joint. IMPRESSION: Status post right shoulder arthroplasty. Electronically signed by: Amari Avelar MD (08/13/2019 5:01 PM) [facility]
[2019-08-13] MEDS ORDERED: ALBUTEROL SULFATE 2.5 MG/3 ML NEBU. CONT NEB ONE (17:15)
--- NOTE | 2019-08-13 17:37 | PDOC4 ---
Operative Note Operative Note Date of surgery: 08/13/2019 Preoperative diagnosis: Right shoulder rotator cuff arthropathy Postoperative diagnosis: Same Operative procedure: Right reverse shoulder arthroplasty Surgeon: Yimi Assist: Jocelyne Anesthesia: Gen. Estimated blood loss: 100 mL Complications: None Operative indications: Miley is a 63-year-old female that previously underwent left reverse shoulder arthroplasty with excellent results and now has right rotator cuff arthropathy unresponsive to nonoperative management no response to recent injection and activity modification. We reviewed risks benefits postoperative course including the possibility of infection nerve or blood vessel damage instability medical or other anesthetic complications continued pain among others all her questions were answered she wishes to proceed with surgical evaluation and treatment having given informed consent. Operative text: Patient was identified procedure verified patient placed in the supine position on the operating table. After adequate amounts of general endotracheal anesthesia were administered she was placed in the beachchair position with the Tmax head rest and spider arm muhammad. The right shoulder was prepped and draped in standard sterile fashion and after timeout was performed patient procedure identified and verified a deltopectoral approach was carried out to the right shoulder these superior aspect of the pectoralis insertion was released as was the distal deltoid subperiosteally and she was noted to have a massive retracted tear of the rotator cuff subscapularis was taken down and the humeral head was prepared with reaming up to a size 11 and a cut on the humeral head with the cutting guide position between 0 and 20� version. A size 11 trial stem was placed glenoid was exposed and capsule was released a guidewire was placed with slight declination centrally along the glenoid surface and drilling was carried out to accommodate a central peg and reaming carried out to get good bleeding bone throughout and drilling was supplemented in sclerotic bone superiorly. A standard trabecular metal glenoid baseplate was impacted and a 42 mm screw placed into the scapular spine 33 mm screw placed to the base of the coracoid each with excellent fixation and were fixated a size 36 mm glenosphere was impacted to engage the Golden taper and trial was carried out with a +6 standard spacer. Excellent range of motion stability was noted trial components were removed and a size 11 humeral stem was assembled with a +6 polyethylene liner which was then impacted in proper version's shoulder was reduced thorough irrigation carried out normal saline solution subscapularis was repaired with #5 Ethibond suture as well as the superior pectoralis tendon subcutaneous closure with buried Vicryl suture subcuticular 3-0 strata fix Monocryl and sterile dressings were applied patient was returned to recovery room in stable condition having tolerated procedure well CONSUELO MORRISON MD Aug 13, 2019 17:37
[2019-08-13 18:00] VITALS: BP 125/68
[2019-08-13 18:15] VITALS: BP 139/70
[2019-08-13 18:30] VITALS: BP 147/69
[2019-08-13] MEDS ORDERED: NON FORMULARY ITEM (Albuterol Sulfate (Albuterol Sulfate Neb Soln) 0.63 MG) NEB PRN (19:45)
[2019-08-13] MEDS: KETOROLAC TROMETHAMINE 10 MG TABLET PO SCH (19:46)
[2019-08-13] MEDS: MORPHINE SULFATE 2 MG/ML VIAL. IV PRN ×2 (19:47→22:58)
[2019-08-13] MEDS: ceFAZolin SODIUM IV Push 1 GM VIAL. IVP SCH (19:50)
[2019-08-13] MEDS: IV DEXTROSE 5 %-0.45 % NACL 1,000 ML IV SCH (19:55)
[2019-08-13] MEDS ORDERED: ceFAZolin SODIUM IV Push 1 GM VIAL. IVP SCH (20:00)
[2019-08-13] MEDS: oxyCODONE/APAP 7.5/325 1 TAB TABLET PO PRN ×2 (20:39→23:40)
[2019-08-13] MEDS: ALBUTEROL SULFATE 2.5 MG/3 ML NEBU. NEB PRN (20:50)
[2019-08-13 23:00] VITALS: BP 113/55
[2019-08-13] MEDS: ZOLPIDEM 5 MG TABLET. PO PRN ×2 (23:43→23:48)
[2019-08-14] MEDS: ceFAZolin SODIUM IV Push 1 GM VIAL. IVP SCH ×2 (02:07→08:08)
[2019-08-14] MEDS: MORPHINE SULFATE 2 MG/ML VIAL. IV PRN (02:14)
[2019-08-14] MEDS: IV DEXTROSE 5 %-0.45 % NACL 1,000 ML IV SCH (02:25)
[2019-08-14 03:00] VITALS: BP 113/56
[2019-08-14] MEDS: oxyCODONE/APAP 7.5/325 1 TAB TABLET PO PRN ×7 (04:16→23:58)
[2019-08-14 04:54] LABS: HEMATOCRIT 34.3 % (36.0-47.0); HEMOGLOBIN 11.4 g/dL (12.0-15.5)
[2019-08-14] MEDS: KETOROLAC TROMETHAMINE 10 MG TABLET PO SCH ×5 (05:52→23:59)
[2019-08-14] MEDS ORDERED: MAGNESIUM HYDROXIDE 2,400 MG/30 ML ORAL.SUSP. PO PRN (06:00)
[2019-08-14 06:33] VITALS: BP 117/63
[2019-08-14] MEDS ORDERED: NON FORMULARY ITEM (Zolpidem Tartrate (Ambien) 10 MG) PO PRN (06:45)
--- NOTE | 2019-08-14 07:19 | PDOC ---
ORTHO PROGRESS NOTES Subjective Patient states that she is painful and has sore throat. Post-op Day: 1 Procedure Right Reverse Total Shoulder Arthroplasty Vitals Vital Signs Date Time Temp Pulse Resp B/P (MAP) Pulse Ox O2 Delivery O2 Flow Rate FiO2 08/14/19 06:42 24 Nasal Cannula 3.0 08/14/19 06:33 98.0 74 117/63 (81) 92 98.0 Labs Laboratory Tests Test 08/13/19 10:40 08/14/19 04:05 Erythrocyte Sedimentation Rate 27 (0-25) Hemoglobin 11.4 g/dL (12.0-15.5) Hematocrit 34.3 % (36.0-47.0) Mean Corpuscular Hemoglobin Concent 33 g/dL (31-37) Laboratory Tests Test 08/13/19 10:40 08/14/19 04:05 Erythrocyte Sedimentation Rate 27 (0-25) Hemoglobin 11.4 g/dL (12.0-15.5) Hematocrit 34.3 % (36.0-47.0) Mean Corpuscular Hemoglobin Concent 33 g/dL (31-37) Notes awake and alert Assessment and Plan POD # 1 R Rev TSA motor and sensation intact at the fingers and hand dressing dry and intact moving hand and fingers without restriction would like to go home tomorrow ASPEN CAMPUZANO APRN Aug 14, 2019 07:19
[2019-08-14] MEDS: LEVOTHYROXINE 50 MCG TABLET PO SCH (08:06)
[2019-08-14] MEDS: LOSARTAN POTASSIUM 50 MG TABLET. PO SCH (08:06)
[2019-08-14] MEDS: amLODIPine BESYLATE 5 MG TABLET PO SCH (08:06)
[2019-08-14] MEDS: PANTOPRAZOLE 40 MG TABLET.DR. PO SCH (08:06)
[2019-08-14] MEDS: SENNOSIDES/DOCUSATE 8.6/50MG TABLET. PO SCH (08:06)
[2019-08-14] MEDS: DULoxetine HCL 30 MG CAPSULE.DR PO SCH ×2 (08:06→20:50)
[2019-08-14] MEDS: FERROUS SULFATE 325 MG TABLET. PO SCH ×2 (08:06→17:04)
[2019-08-14] MEDS: MULTIVITAMIN with MINERAL TABLET. PO SCH (08:06)
[2019-08-14] MEDS: hydroCHLOROthiazide 25 MG TABLET PO SCH (08:07)
[2019-08-14] MEDS: GABAPENTIN 300 MG CAPSULE. PO SCH ×4 (08:07→20:50)
[2019-08-14] MEDS ORDERED: BISACODYL 10 MG SUPP.RECT. PR PRN (16:00)
[2019-08-14 17:40] VITALS: BP 140/72
[2019-08-14 18:22] VITALS: BP 109/65
[2019-08-14] MEDS: ZOLPIDEM 5 MG TABLET. PO PRN (21:09)
[2019-08-14] MEDS: ALBUTEROL SULFATE 2.5 MG/3 ML NEBU. NEB PRN (21:18)
[2019-08-14] MEDS ORDERED: NICOTINE POLACRILEX 2MG GUM PACKAGE of 12. BC PRN (22:45)
[2019-08-15] MEDS: oxyCODONE/APAP 7.5/325 1 TAB TABLET PO PRN ×4 (02:46→14:24)
[2019-08-15] MEDS: LEVOTHYROXINE 50 MCG TABLET PO SCH (06:09)
[2019-08-15] MEDS: KETOROLAC TROMETHAMINE 10 MG TABLET PO SCH ×2 (06:09→12:48)
[2019-08-15] MEDS: PANTOPRAZOLE 40 MG TABLET.DR. PO SCH (06:09)
[2019-08-15 06:21] VITALS: BP 121/66
[2019-08-15] MEDS: SENNOSIDES/DOCUSATE 8.6/50MG TABLET. PO SCH (08:13)
[2019-08-15] MEDS: MULTIVITAMIN with MINERAL TABLET. PO SCH (08:13)
[2019-08-15] MEDS: DULoxetine HCL 30 MG CAPSULE.DR PO SCH (08:13)
[2019-08-15] MEDS: FERROUS SULFATE 325 MG TABLET. PO SCH ×2 (08:14→17:02)
[2019-08-15] MEDS: GABAPENTIN 300 MG CAPSULE. PO SCH ×3 (08:14→17:01)
[2019-08-15] MEDS: LOSARTAN POTASSIUM 50 MG TABLET. PO SCH (08:20)
[2019-08-15] MEDS: hydroCHLOROthiazide 25 MG TABLET PO SCH (08:20)
[2019-08-15] MEDS: amLODIPine BESYLATE 5 MG TABLET PO SCH (11:05)
[2019-08-15 11:08] VITALS: BP 146/74
[2019-08-15] MEDS ORDERED: oxyCODONE ER 10 MG TAB.ER.12H PO SCH (17:00)
[2019-08-15] MEDS ORDERED: OXYC1TAB19 PO (17:53)
--- NOTE | 2019-08-15 17:57 | SNU/HH DC ---
DISCHARGE WITH HOME HEALTH DISCHARGE INFORMATION: Condition on Discharge: Stable CODE STATUS: Code Status: Full HOME HEALTH: Face to Face: I certify this patient is under my care and that I, or a nurse practitioner or physician's legal administrative assistant working with me, had a face to face encounter that meets the physician face to face encounter requirements with this patient on [08/15/19]. Senior Living For: deli/bakery associate For Eval/Treatment: Yes Physical Therapy For: Evalulation/Treatment Pt Meets Homebound Status: Limited distance walking POST DISCHARGE ORDERS: Activity Instructions for Disc: Activity as tolerated Weight Bearing Status after Di: As tolerated Bathing Instructions: Shower-keep dressing dry, No Tub Bath until see Wound/Incision Care: Ice to area for comfort, Keep wound/cast CDI, Keep wound elevated, Do not change dressing (dressing change every other day or as needed) FOLLOW-UP: Follow up with: Dr. Geller 2 weeks TREATMENT/EQUIPMENT ORDERS: Adaptive Equipment Issued: None CERTIFICATION STATEMENT: Certification Statement: Certification Statement: Based on the above finding, I certify that this patient is confined to the home and needs intermittent mcfp care, physical therapy and/or speech therapy, or continues to need occupational therapy.~ This patient is under my care, and I have initiated the establishment of the plan of care.~ This patient will be followed by myself or a community physician who will periodically review the plan of care. Home Meds Reported Medications Oxycodone/Apap 7.5-325 (PERCOCET 7.5-325 MG TABLET ) 1 Each Tablet, 1 TAB PO PRN Q4HRS PRN for PAIN, #50 TAB 0 Refills 08/15/19 Amlodipine Besylate (AMLODIPINE BESYLATE) 5 Mg Tablet, 5 MG PO DAILY for htn, TAB 08/06/19 Levothyroxine Sodium (LEVOTHYROXINE SODIUM) 50 Mcg Tablet, 1 TAB PO DAILY for low thyroid, #30 TAB 5 Refills 08/06/19 Albuterol Sulfate (ALBUTEROL SULFATE NEB SOLN) 0.63 Mg/3 Ml Vial.neb, 0.63 MG NEB Q6HRS PRN for FOR ASTHMA, EACH 0 Refills 12/12/17 Glycopyrrolate/Formoterol Fum (Bevespi Aerosphere Inhaler) 10.7 Gm Hfa.aer.ad, GM IH, INHALER 12/12/17 Losartan/Hydrochlorothiazide (LOSARTAN-HCTZ 100-25 MG TAB) 1 Each Tablet, 1 TAB PO HS for blood pressure, #30 TAB 5 Refills 12/12/17 Esomeprazole Magnesium (NEXIUM CAPSULE) 20 Mg Capsule.dr, 1 CAP PO DAILY, #30 CAP 3 Refills 03/04/16 Zolpidem Tartrate (AMBIEN) 10 Mg Tablet, 10 MG PO HS PRN for INSOMNIA, TAB 0 Refills may repeat x1 if unable to sleep 01/07/16 Gabapentin (GABAPENTIN ) 300 Mg Capsule, 300 MG PO QID, CAP 01/07/16 Duloxetine Hcl (CYMBALTA) 60 Mg Capsule., 60 MG PO BID, CAP 01/07/16 CONSUELO GELLER MD Aug 15, 2019 17:57
--- NOTE | 2019-08-15 22:38 | DS ---
DATE OF DISCHARGE: 08/15/2019 PRINCIPAL DIAGNOSIS: Irreparable rotator cuff tear. PROCEDURE: Right reverse shoulder arthroplasty. DISPOSITION: Home with home health. DISCHARGE INSTRUCTIONS: Follow up with Dr. Geller in 2 weeks. Activity level, standard reverse shoulder precautions. Weightbearing as tolerated. Avoid extreme internal rotation. Use arm as tolerated for pendulum exercises, gentle stretching, eating, toileting and other daily activities. Dressing changes every other day or as needed. Report any redness, drainage, fever, chills, uncontrolled pain, or other problems. DISPOSITION MEDICATIONS: Include Percocet 7.5/325 one p.o. q. 4 hours p.r.n. pain, dispensed #50. Resume preoperative medications. BRIEF DESCRIPTION OF HOSPITAL COURSE: The patient underwent uncomplicated reverse shoulder arthroplasty for irreparable rotator cuff tear and rotator cuff arthropathy of right shoulder. Postoperatively, was noted to have some initial pain control issues and resolving throughout postoperative day #1. She progressed well with physical therapy and as of postop day #2 was transferring and ambulating independently and was transferred to home in stable condition. CONSUELO GELLER MD DR: DENG/renetta JOB#: [id number] / [id number] NATALIE Singleton MD
== END 2019-08-15 18:15 | disposition home health service (06) | DRG 483 ==
LOC: OPSVCIP 07:28 → EDSTATUS 10:15 → 4 SOUTHEST 17:50
PROVIDERS: ADMIT Orthopaedic Surgery; ATTEND Orthopaedic Surgery
PROC: 0RRJ00Z Replacement of Right Shoulder Joint with Reverse Ball and Socket Synthetic Substitute, Open Approach (ICD-10-PCS; principal; 2019-08-13 13:00)
DX: M75.100 Unspecified rotator cuff tear or rupture of unspecified shoulder, not specified as traumatic (principal); Z96.642 Presence of left artificial hip joint; F17.210 Nicotine dependence, cigarettes, uncomplicated; F12.90 Cannabis use, unspecified, uncomplicated; E03.9 Hypothyroidism, unspecified; I10 Essential (primary) hypertension; Z96.612 Presence of left artificial shoulder joint; Z88.2 Allergy status to sulfonamides; Z88.8 Allergy status to other drugs, medicaments and biological substances; Z90.710 Acquired absence of both cervix and uterus; Z82.49 Family history of ischemic heart disease and other diseases of the circulatory system
CPT/HCPCS: 36415; 73030; 85014; 85018; 85651; 86850; 86900; 86901; 94640; A7015; J0171; J0690; J0696; J0780; J1100; J1170; J2001; J2250; J2270; J2370; J2405; J2704; J2710; J2795; J3010; J3490; J7030; J7120; J7613; 97110; 97116; 97530; 97535; C1769; G0378

== ENCOUNTER 2019-09-08 05:06 | Emergency (ER) | payer OTHER ==
[~2019-09-08] VITALS: Ht 149.9 cm; Wt 61.2 kg
[~2019-09-08 05:06] MED LIST changes: -ACETAMINOPHEN 500 MG TABLET PO PRN; -HYDROmorphone 2 MG/ML VIAL IV PRN; -IV RINGERS,LACTATED 1000ML 1,000 ML IV SCH; -LIDOCAINE 1% PF 2 ML VIAL. ID PRN; -MELOXICAM 7.5 MG TABLET PO PRN; -MORPHINE SULFATE 2 MG/ML VIAL. IV PRN; -ONDANSETRON PF 4 MG/2 ML VIAL. IV PRN; +OXYC1TAB19 PO; -PROCHLORPERAZINE 10 MG/2 ML VIAL. IV PRN; -TRANEXAMIC ACID 1,000 MG in IV NS 50ML -- 1ST BAG INJ ONE; -fentaNYL PF VIAL 100 MCG/2 ML VIAL IV PRN
[2019-09-08] MEDS ORDERED: IV NORMAL SALINE 1000ML BAG 1,000 ML IV ONE ×2 (05:45→07:30)
[2019-09-08] MEDS ORDERED: IV NORMAL SALINE 1000ML BAG 1,000 ML IV SCH (05:45)
[2019-09-08] MEDS ORDERED: fentaNYL PF VIAL 100 MCG/2 ML VIAL IVP ONE (05:45)
[2019-09-08] MEDS ORDERED: ONDANSETRON PF 4 MG/2 ML VIAL. IV ONE (05:45)
[2019-09-08 05:51] LABS: BASO # 0.1 x10^3/uL (0.0-0.2); BASO % 1 % (0-3); EOS % 0 % (0-3); HEMATOCRIT 39.3 % (36.0-47.0); HEMOGLOBIN 13.5 g/dL (12.0-15.5); LYMPH # 1.6 x10^3/uL (1.0-4.8); LYMPH % 16 % (24-48); MEAN CORPUSCULAR HEMOGLOBIN 31 pg (25-35); MEAN CORPUSCULAR HGB CONC 34 g/dL (31-37); MEAN CORPUSCULAR VOLUME 91 fL (79-100); MONO # 0.6 x10^3/uL (0.0-1.1); MONO % 6 % (0-9); NEUT # 7.9 x10^3/uL (1.8-7.7); NEUT % 77 % (31-73); PLATELET COUNT 653 x10^3/uL (140-400); RED BLOOD COUNT 4.32 x10^6/uL (3.50-5.40); RED CELL DISTRIBUTION WIDTH 15.3 % (11.5-14.5); WHITE BLOOD COUNT 10.2 x10^3/uL (4.0-11.0)
--- NOTE | 2019-09-08 05:55 | PHYS DOC ---
Past Medical History Past Medical History: Arthritis, COPD, Depression, GERD, High Cholesterol, Hypertension, Other Additional Past Medical Histor: hashimotos (BRANDON PARRY MD) Past Surgical History: Hip Replacement, Hysterectomy, Other Additional Past Surgical Histo: left shoulder, bilat hip replacement, RIGHT SHOULDER (BRANDON PARRY MD) Additional Information: PT STATES SHE SMOKES 1/2 PPD Alcohol Use: None Drug Use: Marijuana (BRANDON PARRY MD) Adult General Chief Complaint Chief Complaint: MECHANICAL FALL HPI HPI Patient is a 63 year old female who presents via EMS with complaining of dizziness and fall and nausea and vomiting and diarrhea. Patient states she had right shoulder surgery 1 month ago and currently taking Percocet and was couple hours prior to arrival to ER felt dizziness and had a fall from a standing position and landed on her right shoulder without loss of consciousness or head injury. Patient complaining of more than 20 episodes of vomiting and multiple episodes of diarrhea with intermittent episodes of left lower quadrant cramping pain without radiation and rated her pain 10 over 10. Patient also complaining of generalized weakness. Patient denies new focal neuro deficit, cough and congestion, sore throat and earache. Patient was afebrile at arrival to ER. (BRANDON PARRY MD) Review of Systems Review of Systems Constitutional: Denies fever, reports chills [] Eyes: Denies change in visual acuity, redness, or eye pain [] HENT: Denies nasal congestion or sore throat [] Respiratory: Denies cough or shortness of breath [] Cardiovascular: No additional information not addressed in HPI [] GI: Reports abdominal pain, nausea, vomiting, diarrhea [] : Denies dysuria or hematuria [] Musculoskeletal: Denies back pain, reports joint pain [] Integument: Denies rash or skin lesions [] Neurologic: Denies headache, focal weakness or sensory changes [] Endocrine: Denies polyuria or polydipsia [] All other systems were reviewed and found to be within normal limits, except as documented in this note. (BRANDON PARRY MD) Current Medications Current Medications Current Medications Medications (Trade) Dose Ordered Sig/Enrike Start Time Stop Time Status Last Admin Dose Admin Fentanyl Citrate (Fentanyl 2ml Vial) 50 mcg 1X ONCE 09/08/19 05:45 09/08/19 05:47 DC 09/08/19 06:05 50 MCG Morphine Sulfate (Morphine Sulfate) 4 mg 1X ONCE 09/08/19 07:30 09/08/19 07:31 DC 09/08/19 07:56 4 MG Ondansetron HCl (Zofran) 4 mg 1X ONCE 09/08/19 05:45 09/08/19 05:47 DC 09/08/19 06:04 4 MG Potassium Chloride (Klor-Con) 20 meq 1X ONCE 09/08/19 07:30 09/08/19 07:31 DC 09/08/19 08:00 20 MEQ Prochlorperazine Edisylate (Compazine) 10 mg 1X ONCE 09/08/19 07:30 09/08/19 07:31 DC 09/08/19 07:59 10 MG Sodium Chloride 1,000 ml @ 1,000 mls/hr 1X ONCE 09/08/19 07:30 09/08/19 08:29 DC (NIC SAHU MD) Allergies Allergies Allergies Coded Allergies Type Severity Reaction Last Updated Verified Sulfa (Sulfonamide Antibiotics) Allergy Intermediate Hives 08/13/19 Yes quetiapine Allergy Intermediate 08/13/19 Yes meperidine Allergy Unknown VOMITING 09/08/19 Yes (NIC SAHU MD) Physical Exam Physical Exam Constitutional: Moderate distress, non-toxic appearance. [] HENT: Normocephalic, atraumatic, dry oral mucosa Eyes: PERRLA, EOMI, conjunctiva normal, no discharge. [] Neck: Normal range of motion, no tenderness, supple, no stridor. [] Cardiovascular: Tachycardia, no murmur [] Lungs & Thorax: Bilateral breath sounds clear to auscultation [] Abdomen: Bowel sounds normal, soft, no tenderness, left lower quadrant guarding, no masses, no pulsatile masses. [] Skin: Warm, dry, no erythema, no rash. [] Back: No tenderness, no CVA tenderness. [] Extremities: Left shoulder with well healed surgical wound without deformity, normal range of motion, mild tenderness, no edema. [] Neurologic: Alert and oriented X 3, no focal deficits noted. [] Psychologic: Affect anxious, judgement normal, mood normal. [] (BRANDON PARRY MD) Current Patient Data Vital Signs Vital Signs Date Time Temp Pulse Resp B/P (MAP) Pulse Ox O2 Delivery O2 Flow Rate FiO2 09/08/19 10:02 86 18 95 09/08/19 05:19 98.1 149/79 (102) Room Air 98.1 (NIC SAHU MD) Lab Values Laboratory Tests Test 09/08/19 05:20 09/08/19 06:02 09/08/19 08:35 White Blood Count 10.2 x10^3/uL (4.0-11.0) Red Blood Count 4.32 x10^6/uL (3.50-5.40) Hemoglobin 13.5 g/dL (12.0-15.5) Hematocrit 39.3 % (36.0-47.0) Mean Corpuscular Volume 91 fL (79-100) Mean Corpuscular Hemoglobin 31 pg (25-35) Mean Corpuscular Hemoglobin Concent 34 g/dL (31-37) Red Cell Distribution Width 15.3 % (11.5-14.5) H Platelet Count 653 x10^3/uL (140-400) H Neutrophils (%) (Auto) 77 % (31-73) H Lymphocytes (%) (Auto) 16 % (24-48) L Monocytes (%) (Auto) 6 % (0-9) Eosinophils (%) (Auto) 0 % (0-3) Basophils (%) (Auto) 1 % (0-3) Neutrophils # (Auto) 7.9 x10^3/uL (1.8-7.7) H Lymphocytes # (Auto) 1.6 x10^3/uL (1.0-4.8) Monocytes # (Auto) 0.6 x10^3/uL (0.0-1.1) Eosinophils # (Auto) 0.0 x10^3/uL (0.0-0.7) Basophils # (Auto) 0.1 x10^3/uL (0.0-0.2) Prothrombin Time 12.9 SEC (11.7-14.0) Prothrombin Time INR 1.0 (0.8-1.1) Sodium Level 135 mmol/L (136-145) L Potassium Level 3.0 mmol/L (3.5-5.1) L Chloride Level 97 mmol/L (98-107) L Carbon Dioxide Level 22 mmol/L (21-32) Anion Gap 16 (6-14) H Blood Urea Nitrogen 9 mg/dL (7-20) Creatinine 0.9 mg/dL (0.6-1.0) Estimated GFR (Cockcroft-Gault) 63.4 BUN/Creatinine Ratio 10 (6-20) Glucose Level 158 mg/dL (70-99) H Calcium Level 9.9 mg/dL (8.5-10.1) Total Bilirubin 0.5 mg/dL (0.2-1.0) Aspartate Amino Transferase (AST) 15 U/L (15-37) Alanine Aminotransferase (ALT) 13 U/L (14-59) L Alkaline Phosphatase 107 U/L (46-116) Creatine Kinase 56 U/L (26-192) Creatine Kinase MB (Mass) 0.8 ng/mL (0.0-3.6) Creatine Kinase MB Relative Index % (0-4) Total Protein 8.4 g/dL (6.4-8.2) H Albumin 4.5 g/dL (3.4-5.0) Albumin/Globulin Ratio 1.2 (1.0-1.7) Lipase 180 U/L (73-393) Lactic Acid Level 3.3 mmol/L (0.4-2.0) H 2.2 mmol/L (0.4-2.0) H Laboratory Tests 09/08/19 05:20 Laboratory Tests 09/08/19 05:20 (NIC SAHU MD) EKG EKG [] (BRANDON PARRY MD) Radiology/Procedures Radiology/Procedures [] (BRANDON PARRY MD) Radiology/Procedures FINDINGS: Limited evaluation of solid abdominal and pelvic organs due to lack of IV contrast. Heart is normal in size. No pericardial or pleural effusion. Stable 3 mm nodule in the right middle lobe. Otherwise, clear lung bases. Noncontrast appearance of the liver, spleen, gallbladder, pancreas, adrenals within normal limits. Evaluation of pelvis is limited due to streak artifact from bilateral hip arthroplasty. No nephrolithiasis or hydronephrosis. No free pelvic fluid or ascites. No bowel obstruction. Normal appendix. Moderate scattered atherosclerotic plaque in the infrarenal aorta and bilateral iliac arteries. No pneumoperitoneum. No suspicious bony lesion. IMPRESSION: Limited evaluation of solid abdominal and pelvic organs due to lack of IV contrast. Also evaluation of pelvis limited due to streak artifact from bilateral hip arthroplasty. 1. No bowel obstruction. 2. No nephrolithiasis or hydronephrosis. Electronically signed by: Bao Bermudez DO (09/08/2019 6:00 AM) [facility] [place] DICTATED and SIGNED BY: BAO BERMUDEZ DO DATE: 09/08/19 06 Impressions: COMPARISON: None FINDINGS: No pneumothorax identified. Cardiac and mediastinal contours unremarkable. No pulmonary consolidation or acute airspace disease. No acute osseous abnormalities identified. Bilateral shoulder arthroplasties. IMPRESSION: No pulmonary consolidation or acute airspace disease. Indication:Pain after fall. TECHNIQUE: 3 views of the right shoulder COMPARISON:None FINDINGS/impression: Status post total shoulder without blastic. No evidence of hardware loosening. No acute fracture or dislocation. Mild acromioclavicular joint osteoarthritis. Electronically signed by: Bao Bermudez DO (09/08/2019 6:06 AM) [facility] [place] DICTATED and SIGNED BY: BAO BERMUDEZ DO DATE: 09/08/19 06 (NIC SAHU MD) Course & Med Decision Making Course & Med Decision Making Pertinent Labs and Imaging studies are pending. Evaluation of patient in ER showed 63-year-old female patient brought in by EMS because of dizziness and fall and nausea and vomiting and diarrhea and abdominal pain. Treatment with IV fluid and Zofran and fentanyl wasn't started. CT of head and abdomen and pelvis and x-ray of chest and shoulder are pending. Labs are pending. Sign out given to at 0600 for further evaluation and final disposition. Discussed current findings and plan with patient and family, who acknowledge understanding and agreement.[] (BRANDON PARRY MD) Course & Med Decision Making Signout at [address] Crain patient had some labs pending apparently she had a fall she has had vomiting and diarrhea for the last 24 hours she landed on her right shoulder where she recently had surgery the pain was actually better before the fall. I examined the patient in detail the abdomen was essentially nontender the shoulder really did not look too bad the surgical incision was intact range of motion was somewhat limited secondary to pain but there was no erythema or induration around the shoulder. Lab workup did show hypokalemia likely due to the vomiting and diarrhea patient did was asked to give a urine sample but urinated in the toilet instead and then was unable to give another one she said she's having no urinary symptoms anyway so she did not think it was necessary. Lactic acid mildly elevated we gave IV fluids and repeated and it came down this was likely related to dehydration and sepsis due to no obvious bacterial source identified and patient has alternative etiology of dehydration anyway. At this point in time patient feeling better prescription for pain control and antiemetics given return precautions discussed working diagnosis is viral gastroenteritis with hypokalemia improving at this time. (NIC SAHU MD) Dragon Disclaimer Dragon Disclaimer This electronic medical record was generated, in whole or in part, using a voice recognition dictation system. (BRANDON PARRY MD) Departure Departure Impression: Primary Impression: Dizziness Additional Impressions: Fall Acute gastroenteritis Right shoulder pain Abdominal pain Disposition: HOME, SELF-CARE Condition: STABLE Referrals: NO PCP (PCP) Scripts Hydrocodone/Apap 5-325 (NORCO 5-325 TABLET) 1 Each Tablet 1-2 EACH PO PRN Q6HRS PRN for PAIN, #8 as needed for pain Prov: NIC SAHU MD 09/08/19 Ondansetron (ONDANSETRON ODT) 4 Mg Tab.rapdis 1 TAB PO PRN Q6-8HRS PRN for NAUSEA/VOMITING, #10 TAB Prov: NIC SAHU MD 09/08/19 Problem Qualifiers Additional Impressions: Fall Encounter type: initial encounter Qualified Codes: W19.XXXA - Unspecified fall, initial encounter Right shoulder pain Chronicity: chronic Qualified Codes: M25.511 - Pain in right shoulder; G89.29 - Other chronic pain Abdominal pain Abdominal location: left lower quadrant Qualified Codes: R10.32 - Left lower quadrant pain BRANDON PARRY MD Sep 08, 2019 05:55 NIC SAHU MD Sep 08, 2019 10:08
[2019-09-08 05:57] LABS: PROTHROMBIN TIME PATIENT 12.9 SEC (11.7-14.0)
--- NOTE | 2019-09-08 05:59 | RAD ---
PQRS Compliance statement: One or more of the following individualized dose reduction techniques were utilized for this examination: 1. Automated exposure control. 2. Adjustment of the mA and/or kV according to patient size. 3. Use of iterative reconstruction technique. Indication:Fall. TECHNIQUE: CT head without IV contrast COMPARISON: None FINDINGS: No pathologic extra-axial or intra-axial fluid collection. The ventricles and basal cisterns are within normal limits. No acute intracranial bleed. No focal loss of abdul-white differentiation. No large scalp hematoma. Orbits are within normal limits. No acute calvarial fractures. Visualized paranasal sinuses and mastoid air cells are clear. IMPRESSION: No acute intracranial bleed or calvarial fracture. Electronically signed by: Bao Bermudez DO (09/08/2019 5:56 AM) [facility]
--- NOTE | 2019-09-08 06:03 | RAD ---
PQRS Compliance statement: One or more of the following individualized dose reduction techniques were utilized for this examination: 1. Automated exposure control. 2. Adjustment of the mA and/or kV according to patient size. 3. Use of iterative reconstruction technique. Indication:Left lower quadrant pain. TECHNIQUE: CT abdomen and pelvis without IV contrast with multiplanar reformats. COMPARISON: None FINDINGS: Limited evaluation of solid abdominal and pelvic organs due to lack of IV contrast. Heart is normal in size. No pericardial or pleural effusion. Stable 3 mm nodule in the right middle lobe. Otherwise, clear lung bases. Noncontrast appearance of the liver, spleen, gallbladder, pancreas, adrenals within normal limits. Evaluation of pelvis is limited due to streak artifact from bilateral hip arthroplasty. No nephrolithiasis or hydronephrosis. No free pelvic fluid or ascites. No bowel obstruction. Normal appendix. Moderate scattered atherosclerotic plaque in the infrarenal aorta and bilateral iliac arteries. No pneumoperitoneum. No suspicious bony lesion. IMPRESSION: Limited evaluation of solid abdominal and pelvic organs due to lack of IV contrast. Also evaluation of pelvis limited due to streak artifact from bilateral hip arthroplasty. 1. No bowel obstruction. 2. No nephrolithiasis or hydronephrosis. Electronically signed by: Bao Bermudez DO (09/08/2019 6:00 AM) [facility]
[2019-09-08 06:05] LABS: CALCIUM 9.9 mg/dL (8.5-10.1); CREATININE 0.9 mg/dL (0.6-1.0); GFR 63.4
--- NOTE | 2019-09-08 06:09 | RAD ---
PROCEDURE: PORTABLE CHEST 1V, SHOULDER 2+V RIGHT CLINICAL INDICATION: Pain after fall. COMPARISON: None FINDINGS: No pneumothorax identified. Cardiac and mediastinal contours unremarkable. No pulmonary consolidation or acute airspace disease. No acute osseous abnormalities identified. Bilateral shoulder arthroplasties. IMPRESSION: No pulmonary consolidation or acute airspace disease. Indication:Pain after fall. TECHNIQUE: 3 views of the right shoulder COMPARISON:None FINDINGS/impression: Status post total shoulder without blastic. No evidence of hardware loosening. No acute fracture or dislocation. Mild acromioclavicular joint osteoarthritis. Electronically signed by: Bao Bermudez DO (09/08/2019 6:06 AM) [facility]
[2019-09-08 06:10] LABS: ALBUMIN 4.5 g/dL (3.4-5.0); ALBUMIN/GLOBULIN RATIO 1.2 (1.0-1.7); TOTAL BILIRUBIN 0.5 mg/dL (0.2-1.0); TOTAL PROTEIN 8.4 g/dL (6.4-8.2)
[2019-09-08 06:24] LABS: CREATINE KINASE 56 U/L (26-192)
[2019-09-08] MEDS ORDERED: POTASSIUM CHLORIDE 20 MEQ TABLET.ER. PO ONE (07:30)
[2019-09-08] MEDS ORDERED: PROCHLORPERAZINE 10 MG/2 ML VIAL. IV ONE (07:30)
[2019-09-08] MEDS ORDERED: MORPHINE SULFATE 4 MG/ML VIAL. IV ONE (07:30)
[2019-09-08] MEDS ORDERED: HYDR-3164 PO (09:54)
[2019-09-08] MEDS ORDERED: ONDA4TAB12 PO (09:54)
[2019-09-08 10:02] VITALS: BP 180/79
--- NOTE | 2019-09-09 08:24 | EKG ---
[facility] [address] [place] [address] Test Date: 2019-09-08 Test Time: 06:14:49 Pat Name: GIOVANNA GARCIA Department: Room: Gender: F Etl Developer: : [id number] Requested By: BRANDON PARRY Order Number: [id number] Reading MD: Armando Frausto MD Measurements Intervals [place] Rate: 78 P: 49 IA: 136 QRS: -5 QRSD: 136 T: 121 QT: 444 QTc: 510 Interpretive Statements SINUS RHYTHM LBBB Electronically Signed On 09-17-2019 13:31:33 CDT by Armando Frausto MD
== END 2019-09-08 10:15 | disposition home or self-care (01) ==
LOC: ER 05:06
DX: R42 Dizziness and giddiness (principal); K52.9 Noninfective gastroenteritis and colitis, unspecified; M25.511 Pain in right shoulder; R10.32 Left lower quadrant pain; R00.0 Tachycardia, unspecified; M19.90 Unspecified osteoarthritis, unspecified site; J44.9 Chronic obstructive pulmonary disease, unspecified; F32.9 Major depressive disorder, single episode, unspecified; K21.9 Gastro-esophageal reflux disease without esophagitis; E78.00 Pure hypercholesterolemia, unspecified; I10 Essential (primary) hypertension; F17.200 Nicotine dependence, unspecified, uncomplicated; Z90.710 Acquired absence of both cervix and uterus; Z96.643 Presence of artificial hip joint, bilateral; Z88.2 Allergy status to sulfonamides; Z88.8 Allergy status to other drugs, medicaments and biological substances; W18.39XA Other fall on same level, initial encounter; Y93.89 Activity, other specified; Y92.89 Other specified places as the place of occurrence of the external cause; Y99.8 Other external cause status
CPT/HCPCS: 36415; 70450; 71045; 73030; 74176; 80053; 82553; 83605; 83690; 85025; 85610; 87040; 87205; 93005; 96361; 96374; 96375; 99285; J0780; J2270; J2405; J3010; J7030

== ENCOUNTER 2021-01-27 08:42 | Inpatient (IN) | payer MEDICARE, OTHER ==
[~2021-01-27] VITALS: Ht 149.9 cm; Wt 63.0 kg
[~2021-01-27 08:42] MED LIST changes: +AMLO-186 PO; -AMLO5TAB10 PO; -CIPR500T PO; +CIPR500T2 PO; +ONDA4TAB12 PO; -RANI-348 PO; +RANI-369 PO; -WARF-78 PO; +WARF1TAB2 PO; -WARF1TAB74 PO; +WARF5TAB2 PO
--- NOTE | 2021-01-27 08:49 | PHYS DOC ---
Past Medical History Past Medical History: Arthritis, COPD, Depression, GERD, High Cholesterol, Hypertension, Other Additional Past Medical Histor: hashimotos Past Surgical History: Hip Replacement, Hysterectomy, Other Additional Past Surgical Histo: left shoulder, bilat hip replacement, RIGHT SHOULDER Smoking Status: Current Every Day Smoker Alcohol Use: None Drug Use: Marijuana General Adult EDM: Chief Complaint: dyspnea HPI: HPI: 65-year-old female presenting the emergency department today with cough and shortness of breath over the past 2 weeks. It is worse with exertion. She has been using her albuterol at home with minimal relief. She denies any cyanosis or acute respiratory distress. It is not associated with chest pain. She denies vomiting fevers or chills. She denies any new rashes. She denies unilateral leg swelling hemoptysis history of DVT or PE or recent surgery or immobilization. Review of systems negative for abdominal pain vomiting fevers chills rash. All other review of systems negative. ED course: 65-year-old female presenting with shortness of breath. Orders placed. Patient was given 2 nebulizers in the emergency department with improvement of her symptoms. Her chest x-ray is unremarkable. CBC unremarkable. Chemistry panel shows hypokalemia. D-dimer within normal limits. We will admit the patient for IV potassium and continue treatment of COPD exacerbation. I spoke with Dr. Paiz who accepts patient for admission. Basic bridge orders placed. Heart Score: C/O Chest Pain: Yes HEART Score for Chest Pain: HEART Score for Chest Pain Response (Comments) Value History Moderately Suspicious 1 ECG Nonspecific Repolarizatio 1 Age >45 - < 65 1 Risk Factors 1 or 2 Risk Factors 1 Troponin < Normal Limit 0 Total 4 Risk Factors: Risk Factors: DM, Current or recent (<one month) smoker, HTN, HLP, family history of CAD, obesity. Risk Scores: Score 0 - 3: 2.5% MACE over next 6 weeks - Discharge Home Score 4 - 6: 20.3% MACE over next 6 weeks - Admit for Clinical Observation Score 7 - 10: 72.7% MACE over next 6 weeks - Early Invasive Strategies Allergies: Allergies: Allergies Coded Allergies Type Severity Reaction Last Updated Verified Sulfa (Sulfonamide Antibiotics) Allergy Intermediate Hives 08/13/19 Yes quetiapine Allergy Intermediate 08/13/19 Yes meperidine Allergy Unknown VOMITING 09/08/19 Yes Physical Exam: PE: Constitutional: Well developed, well nourished, no acute distress, non-toxic appearance. [] HENT: Normocephalic, atraumatic, bilateral external ears normal, oropharynx moist, no oral exudates, nose normal. [] Eyes: PERRLA, EOMI, conjunctiva normal, no discharge. [] Neck: Normal range of motion, no tenderness, supple, no stridor. [] Cardiovascular:Heart rate regular rhythm, no murmur [] Lungs & Thorax: Wheezing more pronounced on the left than the right. Prolonged expiratory phase present. Not in respiratory distress. No crepitus to palpation of the chest wall. Abdomen: Bowel sounds normal, soft, no tenderness, no masses, no pulsatile masses. [] Skin: Warm, dry, no erythema, no rash. [] Back: No tenderness, no CVA tenderness. [] Extremities: No tenderness, no cyanosis, no clubbing, ROM intact, no edema. [] Neurologic: Alert and oriented X 3, normal motor function, normal sensory function, no focal deficits noted. [] Psychologic: Affect normal, judgement normal, mood normal. [] EKG: EKG: [] EKG shows sinus rhythm with a regular rate. Patient has a left bundle branch block pattern present. ST segments show appropriate repolarization. Scar Bosa negative. Not suggestive of acute ischemia. Radiology/Procedures: Radiology/Procedures: [] Course & Med Decision Making: Course & Med Decision Making Pertinent Labs and Imaging studies reviewed. (See chart for details) [] Dragon Disclaimer: Dragon Disclaimer: This electronic medical record was generated, in whole or in part, using a voice recognition dictation system. Departure Departure Impression: Primary Impression: COPD exacerbation Additional Impression: Hypokalemia Disposition: ADMITTED INPT THIS HOSP Admitting Physician: HIMS Condition: STABLE Referrals: NO PCP (PCP) PRACHI HARDY MD Jan 27, 2021 08:49
[2021-01-27] MEDS ORDERED: methylPREDNISolone SOD SUCC PF 125 MG/2 ML VIAL. IV ONE (09:00)
[2021-01-27] MEDS ORDERED: IPRATRPIUM/ALBUTEROL 0.5/2.5MG 3 ML NEBU. NEB ONE (09:00)
--- NOTE | 2021-01-27 09:09 | RAD ---
EXAM: Chest, single view. HISTORY: Shortness of air. COMPARISON: 09/08/2019 FINDINGS: A frontal view of the chest is obtained. There is no infiltrate, pleural effusion or pneumo thorax. The heart is normal in size. There are bilateral shoulder arthroplasties. IMPRESSION: No acute pulmonary finding. Electronically signed by: Daniella Mckeon MD (01/27/2021 9:07 AM) [id number]
[2021-01-27 09:11] LABS: ALBUMIN 3.7 g/dL (3.4-5.0); CALCIUM 8.8 mg/dL (8.5-10.1); CREATININE 0.7 mg/dL (0.6-1.0); DIRECT BILIRUBIN 0.1 mg/dL (0.0-0.2); GFR 84.2; TOTAL BILIRUBIN 0.4 mg/dL (0.2-1.0); TOTAL PROTEIN 6.6 g/dL (6.4-8.2)
[2021-01-27 09:13] LABS: POTASSIUM 2.6 mmol/L (3.5-5.1)
[2021-01-27 09:26] LABS: BASO # 0.1 x10^3/uL (0.0-0.2); BASO % 1 % (0-3); EOS # 0.1 x10^3/uL (0.0-0.7); EOS % 1 % (0-3); HEMATOCRIT 37.3 % (36.0-47.0); HEMOGLOBIN 12.9 g/dL (12.0-15.5); LYMPH # 2.1 x10^3/uL (1.0-4.8); LYMPH % 21 % (24-48); MEAN CORPUSCULAR HEMOGLOBIN 32 pg (25-35); MEAN CORPUSCULAR HGB CONC 35 g/dL (31-37); MEAN CORPUSCULAR VOLUME 93 fL (79-100); MONO # 0.7 x10^3/uL (0.0-1.1); MONO % 7 % (0-9); NEUT # 6.8 x10^3/uL (1.8-7.7); NEUT % 70 % (31-73); PLATELET COUNT 432 x10^3/uL (140-400); RED CELL DISTRIBUTION WIDTH 14.2 % (11.5-14.5); WHITE BLOOD COUNT 9.8 x10^3/uL (4.0-11.0)
[2021-01-27] MEDS ORDERED: POTASSIUM CHLORIDE 20MEQ 100 ML IV ONE (10:00)
--- NOTE | 2021-01-27 11:09 | EKG ---
[facility] [address] [place] [address] Test Date: 2021-01-27 Test Time: 08:57:06 Pat Name: GIOVANNA GARCIA Department: Room: Gender: F Superintendent Pier: : [id number] Requested By: PRACHI HARDY Order Number: [id number] Reading MD: Measurements Intervals [place] Rate: 75 P: OR: QRS: -1 QRSD: 152 T: 118 QT: 438 QTc: 492 Interpretive Statements IRREGULAR RHYTHM, NO P-WAVE FOUND LEFTWARD AXIS LEFT BUNDLE BRANCH BLOCK ABNORMAL ECG RI6.02 No previous ECG available for comparison
[2021-01-27 11:30] VITALS: BP 151/78
[2021-01-27] MEDS ORDERED: IPRATRPIUM/ALBUTEROL 0.5/2.5MG 3 ML NEBU. NEB SCH (12:00)
[2021-01-27] MEDS ORDERED: ONDANSETRON PF 4 MG/2 ML VIAL. IVP PRN (12:45)
--- NOTE | 2021-01-27 12:51 | HP ---
ADMIT DATE: 01/27/2021 CHIEF COMPLAINT: Shortness of breath and cough. HISTORY OF PRESENT ILLNESS: The patient is a pleasant 65-year-old female who continues to smoke despite having COPD. Once again, she presents with COPD exacerbation. She is hypoxic. She has shortness of breath. She is coughing. It has been occurring for 2 weeks, rated at 7/10 and has associated weakness. She increased her home meds, but that did not work, describes her symptoms as irritating, worse with movement, better with sitting still. I discussed the case with the ER physician. We are going to admit the patient and give her COPD protocol and consult Pulmonary Medicine. PAST MEDICAL HISTORY: Arthritis, COPD, depression, GERD, hyperlipidemia, hypertension, Neeru's disease, hip replacement, hysterectomy, left shoulder surgery, hip surgery bilaterally, tobacco abuse, marijuana use. ALLERGIES: SULFA, MEPERIDINE AND QUETIAPINE. FAMILY HISTORY: COPD. SOCIAL HISTORY: She smokes. No drink or drugs. MEDICATIONS: Reviewed, please refer to the MRAD. REVIEW OF SYSTEMS: GENERAL: No history of weight change, weakness or fevers. SKIN: No bruising, hair changes or rashes. EYES: No blurred, double or loss of vision. NOSE AND THROAT: No history of nosebleeds, hoarseness or sore throat. HEART: No history of palpitations, chest pain or shortness of breath on exertion. LUNGS: She complains of shortness of breath and cough. GASTROINTESTINAL: Denies changes in appetite, nausea, vomiting, diarrhea or constipation. GENITOURINARY: No history of frequency, urgency, hesitancy or nocturia. NEUROLOGIC: Denies history of numbness, tingling, tremor or weakness. PSYCHIATRIC: No history of panic, anxiety or depression. ENDOCRINE: No history of heat or cold intolerance, polyuria or polydipsia. EXTREMITIES: Denies muscle weakness, joint pain, pain on walking or stiffness. PHYSICAL EXAMINATION: VITALS: Within normal limits and are stable. GENERAL: She looks depressed and short of breath. HEENT: Normal cephalic atraumatic, external auditory canals are patent. Eyes: Extraocular muscles are intact, pupils are equally round and reactive to light and accommodation. MUSCULOSKELETAL: Well developed, well nourished, good range of motion. ENDOCRINE: No thyromegaly was palpated. LYMPHATICS: No cervical chain or axillary nodes were noted. HEMATOPOIETIC: No bruising. NECK: Supple, no JVD, no thyromegaly was noted. LUNGS: She has very diminished breath sounds. HEART: RRR, S1, S2 present. Peripheral pulses intact, no obvious murmurs were noted. ABDOMEN: Soft, nontender. Positive bowel sounds no organomegaly, normal bowel sounds. EXTREMITIES: Without any cyanosis, clubbing, or edema. Pedal pulses intact, Homans sign is negative. NEUROLOGIC: Normal speech, normal tone. A and O x 3, moves all extremities, no obvious focal deficits. PSYCHIATRIC: She looks depressed. SKIN: No ulcerations or rashes, good skin turgor, no jaundice. VASCULAR: Good capillary refill, neurovascular bundle appears to be intact. LABORATORY DATA: Hematology is normal. Sodium is low at 132. Potassium is low at 2.6. Chest x-ray shows no acute disease. ASSESSMENT AND PLAN: Chronic obstructive pulmonary disease exacerbation with respiratory failure. The patient will be admitted. We will start IV steroids, breathing treatments, oxygen. Consider IV antibiotics. Consult Pulmonary Medicine. Home meds. DVT prophylaxis. Full code. Prognosis guarded. I did tell her to please quit smoking. LETICIA ZIEGLER DO DR: CONTRERAS/renetta JOB#: [id number] / [id number]
[2021-01-27] MEDS ORDERED: methylPREDNISolone SOD SUCC PF 40 MG/ML VIAL. IV SCH (13:00)
--- NOTE | 2021-01-27 13:59 | PDOC ---
PULMONARY PROGRESS NOTES DATE: 01/27/21 TIME: 13:59 Vitals Vital Signs Date Time Temp Pulse Resp B/P (MAP) Pulse Ox O2 Delivery O2 Flow Rate FiO2 01/27/21 11:30 98.3 81 20 151/78 (102) 96 Room Air 98.3 Labs Laboratory Tests Test 01/27/21 07:45 White Blood Count 9.8 x10^3/uL (4.0-11.0) Red Blood Count 4.00 x10^6/uL (3.50-5.40) Hemoglobin 12.9 g/dL (12.0-15.5) Hematocrit 37.3 % (36.0-47.0) Mean Corpuscular Volume 93 fL (79-100) Mean Corpuscular Hemoglobin 32 pg (25-35) Mean Corpuscular Hemoglobin Concent 35 g/dL (31-37) Red Cell Distribution Width 14.2 % (11.5-14.5) Platelet Count 432 x10^3/uL (140-400) Neutrophils (%) (Auto) 70 % (31-73) Lymphocytes (%) (Auto) 21 % (24-48) Monocytes (%) (Auto) 7 % (0-9) Eosinophils (%) (Auto) 1 % (0-3) Basophils (%) (Auto) 1 % (0-3) Neutrophils # (Auto) 6.8 x10^3/uL (1.8-7.7) Lymphocytes # (Auto) 2.1 x10^3/uL (1.0-4.8) Monocytes # (Auto) 0.7 x10^3/uL (0.0-1.1) Eosinophils # (Auto) 0.1 x10^3/uL (0.0-0.7) Basophils # (Auto) 0.1 x10^3/uL (0.0-0.2) D-Dimer (Starr) 0.34 ug/mlFEU (0.00-0.50) Sodium Level 132 mmol/L (136-145) Potassium Level 2.6 mmol/L (3.5-5.1) Chloride Level 94 mmol/L (98-107) Carbon Dioxide Level 26 mmol/L (21-32) Anion Gap 12 (6-14) Blood Urea Nitrogen 5 mg/dL (7-20) Creatinine 0.7 mg/dL (0.6-1.0) Estimated GFR (Cockcroft-Gault) 84.2 Glucose Level 132 mg/dL (70-99) Calcium Level 8.8 mg/dL (8.5-10.1) Magnesium Level 2.1 mg/dL (1.8-2.4) Total Bilirubin 0.4 mg/dL (0.2-1.0) Direct Bilirubin 0.1 mg/dL (0.0-0.2) Aspartate Amino Transf (AST/SGOT) 12 U/L (15-37) Alanine Aminotransferase (ALT/SGPT) 21 U/L (14-59) Alkaline Phosphatase 67 U/L (46-116) Troponin I Quantitative < 0.017 ng/mL (0.000-0.055) CP-Hyq-O-Type Natriuretic Peptide 147 pg/mL (0-124) Total Protein 6.6 g/dL (6.4-8.2) Albumin 3.7 g/dL (3.4-5.0) Lipase 196 U/L (73-393) Laboratory Tests Test 01/27/21 07:45 White Blood Count 9.8 x10^3/uL (4.0-11.0) Red Blood Count 4.00 x10^6/uL (3.50-5.40) Hemoglobin 12.9 g/dL (12.0-15.5) Hematocrit 37.3 % (36.0-47.0) Mean Corpuscular Volume 93 fL (79-100) Mean Corpuscular Hemoglobin 32 pg (25-35) Mean Corpuscular Hemoglobin Concent 35 g/dL (31-37) Red Cell Distribution Width 14.2 % (11.5-14.5) Platelet Count 432 x10^3/uL (140-400) Neutrophils (%) (Auto) 70 % (31-73) Lymphocytes (%) (Auto) 21 % (24-48) Monocytes (%) (Auto) 7 % (0-9) Eosinophils (%) (Auto) 1 % (0-3) Basophils (%) (Auto) 1 % (0-3) Neutrophils # (Auto) 6.8 x10^3/uL (1.8-7.7) Lymphocytes # (Auto) 2.1 x10^3/uL (1.0-4.8) Monocytes # (Auto) 0.7 x10^3/uL (0.0-1.1) Eosinophils # (Auto) 0.1 x10^3/uL (0.0-0.7) Basophils # (Auto) 0.1 x10^3/uL (0.0-0.2) D-Dimer (Starr) 0.34 ug/mlFEU (0.00-0.50) Sodium Level 132 mmol/L (136-145) Potassium Level 2.6 mmol/L (3.5-5.1) Chloride Level 94 mmol/L (98-107) Carbon Dioxide Level 26 mmol/L (21-32) Anion Gap 12 (6-14) Blood Urea Nitrogen 5 mg/dL (7-20) Creatinine 0.7 mg/dL (0.6-1.0) Estimated GFR (Cockcroft-Gault) 84.2 Glucose Level 132 mg/dL (70-99) Calcium Level 8.8 mg/dL (8.5-10.1) Magnesium Level 2.1 mg/dL (1.8-2.4) Total Bilirubin 0.4 mg/dL (0.2-1.0) Direct Bilirubin 0.1 mg/dL (0.0-0.2) Aspartate Amino Transf (AST/SGOT) 12 U/L (15-37) Alanine Aminotransferase (ALT/SGPT) 21 U/L (14-59) Alkaline Phosphatase 67 U/L (46-116) Troponin I Quantitative < 0.017 ng/mL (0.000-0.055) EN-Hmf-G-Type Natriuretic Peptide 147 pg/mL (0-124) Total Protein 6.6 g/dL (6.4-8.2) Albumin 3.7 g/dL (3.4-5.0) Lipase 196 U/L (73-393) Medications Active Scripts Medications Dose Route/Sig Max Daily Dose Days Date Category Dose Instructions Vernon 5-325 Tablet (Acetaminophen/Hydrocodone Bitart) 1 Each Tablet 1-2 Each PO PRN Q6HRS PRN 09/08/19 Rx as needed for pain Ondansetron Odt (Ondansetron) 4 Mg Tab.rapdis 1 Tab PO PRN Q6-8HRS PRN 09/08/19 Rx Percocet 7.5-325 Mg Tablet (Oxycodone/Acetaminophen) 1 Each Tablet 1 Tab PO PRN Q4HRS PRN 08/15/19 Reported Amlodipine Besylate 5 Mg Tablet 5 Mg PO DAILY 08/06/19 Reported Levothyroxine Sodium 50 Mcg Tablet 1 Tab PO DAILY 08/06/19 Reported Albuterol Sulfate Neb Soln (Albuterol Sulfate) 0.63 Mg/3 Ml Vial.neb 0.63 Mg NEB Q6HRS PRN 12/12/17 Reported Bevespi Aerosphere Inhaler (Glycopyrrolate/Formoterol Fum) 10.7 Gm Hfa.aer.ad Gm IH 12/12/17 Reported Losartan-Hctz 100-25 Mg Tab (Losartan/Hydrochlorothiazide) 1 Each Tablet 1 Tab PO HS 12/12/17 Reported Nexium Capsule (Esomeprazole Magnesium) 20 Mg Capsule. 1 Cap PO DAILY 03/04/16 Reported Ambien (Zolpidem Tartrate) 10 Mg Tablet 10 Mg PO HS PRN 01/07/16 Reported may repeat x1 if unable to sleep Gabapentin (Gabapentin) 300 Mg Capsule 300 Mg PO QID 01/07/16 Reported Cymbalta (Duloxetine Hcl) 60 Mg Capsule. 60 Mg PO BID 01/07/16 Reported Impression . Full note dictated Acute exacerbation of COPD. GORDO FLYNN MD Jan 27, 2021 13:59
[2021-01-27] MEDS ORDERED: DOXYCYCLINE HYCLATE 100 MG TABLET PO SCH (14:00)
[2021-01-27 15:00] VITALS: BP 159/90
--- NOTE | 2021-01-27 15:59 | NUR ---
Pt stated that they wanted to leave the hospital right now. I notified Dr. Mondragon and he said it was fine to let the pt leave AMA. Pt called and got a ride, was told that she was leaving against medical advice and the pt didnt have any concerns. Pt got IV taken out, and heart monitor taken off. Security escorted the pt out the doors, and watch them leave in pt's friends car. Nursing Crm Campaign Manager was notified.
--- NOTE | 2021-01-27 19:53 | CONS ---
DATE OF CONSULTATION: 01/27/2021 ATTENDING PHYSICIAN: Dr. Forman. REASON FOR CONSULTATION: The patient is seen in pulmonary consultation at the request of Dr. Mondragon for increasing shortness of air. HISTORY OF PRESENT ILLNESS: The patient is a 65-year-old with known history of tobacco use. Uses albuterol at home for chronic obstructive pulmonary disease, presented with a 2-week history of mainly nausea, vomiting and emesis. No fever, chills or night sweats. She is slightly more short of breath. She has a cough, mostly nonproductive. She has had no COVID-19 exposure. She last had a COVID test last year which was negative. PAST MEDICAL HISTORY: Remarkable for chronic obstructive pulmonary disease, tobacco dependent, depression, gastroesophageal reflux, hypertension, arthritis. PAST SURGICAL HISTORY: Status post hip replacement, hysterectomy, left shoulder surgery. SOCIAL HISTORY: She smokes on a regular basis. Occasional use of marijuana. REVIEW OF SYSTEMS: As indicated above, otherwise, a 10-point was reviewed and negative. ALLERGIES: LISTED TO SULFA, MEPERIDINE AND QUETIAPINE. CURRENT MEDICATION: List was reviewed. PHYSICAL EXAMINATION: VITAL SIGNS: Stable. O2 saturation currently on room air was 95-96%. HEENT: Eyes: The sclerae were nonicteric. NECK: Jugular venous distention was not elevated. No lymphadenopathy. CHEST: Full expansion. LUNGS: Adequate flow with no wheezes. CARDIOVASCULAR: Regular rate and rhythm with S1, S2, no S3. ABDOMEN: Soft, nontender, nondistended. EXTREMITIES: No clubbing, cyanosis and no edema. NEUROLOGIC: The patient was awake, alert, following commands. A detailed neuro exam was not performed. LABORATORY DATA: Reviewed. Potassium was low. Otherwise, CBC was normal. BNP was slightly elevated. Chest x-ray was reviewed, no acute cardiopulmonary process. IMPRESSION: 1. Acute exacerbation of chronic obstructive pulmonary disease. 2. Tobacco dependence. 3. Gastroenteritis per primary care physician. 4. Other comorbidities including hyperlipidemia, hypertension, Neeru and arthritis. PLAN: 1. We will continue treatment with doxycycline and prednisone. 2. Nebulized treatments. 3. We will defer any further workup of the gastroenteritis to Dr. Mondragon. 4. Replace potassium. I do appreciate the privilege in sharing in the patient's care. GORDO FLYNN MD DR: Abelardo JOB#: [id number] / [id number]
[2021-01-28] MEDS ORDERED: predniSONE 10 MG TABLET PO SCH (09:00)
--- NOTE | 2021-01-28 16:06 | NUR ---
IP: Attempted to contact pt concerning COVID results. No aswer, left a voicemail to return the call.
== END 2021-01-27 15:53 | disposition left against medical advice (07) | DRG 190 ==
LOC: ER 08:42 → 6 SOUTH 10:09
PROVIDERS: ADMIT Internal Medicine; ATTEND Internal Medicine
DX: J44.1 Chronic obstructive pulmonary disease with (acute) exacerbation (principal); J96.91 Respiratory failure, unspecified with hypoxia; Z96.643 Presence of artificial hip joint, bilateral; M19.90 Unspecified osteoarthritis, unspecified site; K52.9 Noninfective gastroenteritis and colitis, unspecified; F17.200 Nicotine dependence, unspecified, uncomplicated; I10 Essential (primary) hypertension; F12.90 Cannabis use, unspecified, uncomplicated; E78.5 Hyperlipidemia, unspecified; E78.00 Pure hypercholesterolemia, unspecified; E11.9 Type 2 diabetes mellitus without complications; E06.3 Autoimmune thyroiditis; E87.6 Hypokalemia; F32.9 Major depressive disorder, single episode, unspecified; K21.9 Gastro-esophageal reflux disease without esophagitis; Z96.612 Presence of left artificial shoulder joint; Z20.822 Contact with and (suspected) exposure to COVID-19; Z90.710 Acquired absence of both cervix and uterus; Z82.5 Family history of asthma and other chronic lower respiratory diseases; Z82.49 Family history of ischemic heart disease and other diseases of the circulatory system; Z88.2 Allergy status to sulfonamides; Z88.8 Allergy status to other drugs, medicaments and biological substances
CPT/HCPCS: 36415; 71045; 80048; 80076; 83690; 83735; 83880; 84484; 85025; 85379; 93005; 94640; 96365; 96375; 99285; J2405; J2920; J2930; J3480; U0003; G0378

== ENCOUNTER → 2021-05-12 | Outpatient (CLI) | payer MEDICARE ==
[~2021-05-12] MED LIST changes: +IOHEXOL 300 MG/ML 100ML VIAL. IV ONE
--- NOTE | 2021-05-13 08:26 | KCIC ---
PQRS Compliance Statement: One or more of the following individualized dose reduction techniques were utilized for this examinat ion: 1. Automated exposure control 2. Adjustment of the mA and/or kV according to patient size 3. Use of iterative reconstruction technique CTA HEAD Clinical Indication: Reason: Family hx. aneurysm, sister had aneursym at age 64. Headaches / Comparison: CT head without contrast September 08, 2019. Technique: Axial CT imaging of the brain is performed precontrast. Helical CT imaging from the skull base to the skull vertex is performed after 95 cc of Omnipaque [address] angiogram pro tocol. 3-D MIP reconstructions of the [place] are performed. PQRS Compliance Statement - Stenosis calculations for CT, MR and conventional angiography are based u edinson measurement of the distal ICA diameter in accordance with the NASCET methodology. Stenosis calcu lations for carotid ultrasound studies are derived from validated velocity criteria which are known t o correlate with the NASCET methodology. Findings: Small mucous retention cyst or polyp inferior left maxillary sinus. There is no air-fluid level. No a cute abnormality of the calvarium. Small mucous retention cyst or polyp left sphenoid sinus. No midli ne shift or mass effect. No acute intraparenchymal hemorrhage. No acute loss of abdul-white matter dif ferentiation. Globes are intact. The distal left vertebral artery is dominant. Basilar artery is patent. The superior cerebellar arter ies are patent. The posterior circulation is intact. There is a left posterior communicating artery. The distal internal carotid arteries are patent. Mild atherosclerotic calcification of the cavernous internal carotid arteries. No significant stenosis. The right A1 segment is very small caliber. There is patent anterior communicating artery. The anterior cerebral arteries are patent. The middle cereb ral arteries are patent. No intracranial aneurysm is identified. Not protocoled for their evaluation, there is no obvious abnormality of the dural venous sinuses. No abnormal enhancement of the brain parenchyma is appreciated. IMPRESSION: 1. There is no intracranial artery aneurysm. 2. Hypoplastic right A1 segment. 3. No acute intracranial abnormality. Electronically signed by: Ashok Diamond MD (05/13/2021 8:23 AM) [facility]
== END ==
LOC: KCIC CT 13:44
PROVIDERS: ATTEND Family Medicine
DX: R51.9 Headache, unspecified (principal); Z82.49 Family history of ischemic heart disease and other diseases of the circulatory system
CPT/HCPCS: 70496; Q9967